=== PATIENT | female | born 1975 | race Caucasian/White ===

== ENCOUNTER 2017-10-27 11:42 | Emergency (ER) | payer OTHER ==
[~2017-10-27] VITALS: Ht 167.6 cm; Wt 103.0 kg
[~2017-10-27 11:42] MED LIST: ALBU90OI INH; AMOX875; AZIT250 PO; BENZ100A PO; Benadryl25 MG PO; CEPH500; CEPH500 PO; CODACE30 PO; CODGUAEL PO; DEPO SHOT; DIPH50 PO; Dicyclomine HCl10 MG PO; FLUSAL1005; GLIP5 PO; HYDACE5; HYDHOMSY; IPRAOI INH; LEVFLO500 PO; LEVOCETIRIZINE D5 MG PO; LISI5 PO; LORA10 PO; METF500 PO; MOM; Mucinex600 MG PO; NEOPOLHCSU AS; OMEP10ER; OMEP20ER; OMEP20ER PO; OXYACE5T PO; PANT20 PO; PANT40 PO; PRAV20 PO; PRED10 PO; Prednisone20 MG PO; TRADJENTA5 MG PO; [UNRECOGNIZED DRUG - REMARK]; [UNRECOGNIZED DRUG - REMARK]
== END 2017-10-27 13:46 | disposition home or self-care (01) ==
LOC: ER 11:42
DX: J02.9 Acute pharyngitis, unspecified (principal); E11.9 Type 2 diabetes mellitus without complications; Z88.0 Allergy status to penicillin; Z88.2 Allergy status to sulfonamides; Z88.8 Allergy status to other drugs, medicaments and biological substances; Z79.899 Other long term (current) drug therapy; Z79.84 Long term (current) use of oral hypoglycemic drugs; Z98.51 Tubal ligation status; Z87.891 Personal history of nicotine dependence
CPT/HCPCS: 87081; 87430; 99283

== ENCOUNTER → 2018-11-06 | Outpatient (CLI) | payer OTHER | END | disposition home or self-care (01) | LOC: LAB SHORT 14:14 → LAB EV 14:14 | DX: R07.0 Pain in throat (principal) | CPT/HCPCS: 87070 ==

== ENCOUNTER → 2019-02-19 | Outpatient (CLI) | payer OTHER | END | disposition home or self-care (01) | LOC: LAB SHORT 14:11 → LAB EV 14:11 | DX: K13.70 Unspecified lesions of oral mucosa (principal) | CPT/HCPCS: 87529 ==

== ENCOUNTER → 2019-09-30 | Outpatient (CLI) | payer OTHER | LOC: LAB SHORT 17:42 → LAB 17:42 → EDSTATUS 09-30 16:15 → LAB FUT 09-30 16:15 | DX: L29.3 Anogenital pruritus, unspecified (principal) | CPT/HCPCS: 87070; 87106; 87147; 87205 ==

== ENCOUNTER → 2020-07-16 | Outpatient (CLI) | payer OTHER ==
[2020-07-16 18:12] LABS: BASOPHILS ABSOLUTE AUTO 0.04 K/mm3 (0.00-0.23); BASOPHILS PERCENT AUTO 0 % (0-2); EOSINOPHILS ABSOLUTE AUTO 0.39 K/mm3 (0.00-0.68); EOSINOPHILS PERCENT AUTO 4 % (0-6); Hematocrit 40.1 % (33.0-51.0); Hemoglobin 13.6 g/dL (11.5-16.0); IMMATURE GRAN ABSOLUTE AUTO 0.06 K/mm3 (0.00-0.10); IMMATURE GRAN PERCENT AUTO 1 % (0-1); LYMPHOCYTES ABSOLUTE AUTO 2.99 K/mm3 (0.84-5.20); LYMPHOCYTES PERCENT AUTO 31 % (21-46); MONOCYTES ABSOLUTE AUTO 0.56 K/mm3 (0.16-1.47); MONOCYTES PERCENT AUTO 6 % (4-13); Mean Corpuscular HGB Conc 33.9 g/dL (31.5-36.5); Mean Corpuscular Volume 83 fL (80-100); Mean Platelet Volume 9.2 fL (9.1-12.4); NEUTROPHILS ABSOLUTE AUTO 5.49 K/mm3 (1.96-9.15); NEUTROPHILS PERCENT AUTO 58 % (41-73); Platelet Count 347 K/mm3 (150-400); RDW Coefficient Variation 12.6 % (11.7-14.2); RDW Standard Deviation 37.8 fL (35.1-46.3); Red Blood Cell Count 4.86 M/mm3 (3.80-5.20); White Blood Cell Count 9.53 K/mm3 (4.00-11.30)
[2020-07-16 18:22] LABS: Alanine Aminotransfer (ALT/SGP 30 U/L (12-78); Albumin, Blood 3.7 g/dL (3.4-5.0); Albumin/Globulin Ratio 0.9 (0.8-1.8); Alk Phos 73 U/L (40-126); Anion Gap 11 mmol/L (6-16); Aspartate Aminotrans (AST/SGOT 16 U/L (12-37); Bilirubin, Total 0.2 mg/dL (0.1-1.0); Blood Urea Nitrogen 14 mg/dL (8-24); Bun/Creatinine Ratio 16.7 (12.0-20.0); CO2, Blood 23 mmol/L (21-32); Calcium, Blood 9.5 mg/dL (8.5-10.1); Chloride, Blood 100 mmol/L (98-108); Creatinine, Blood 0.84 mg/dL (0.40-1.00); Globulin, Blood 3.9 g/dL (2.2-4.0); Glomerular Filtration Rate >60 (60-); Glucose, Blood 296 mg/dL (70-99); Potassium, Blood 4.2 mmol/L (3.5-5.5); Sodium, Blood 134 mmol/L (136-145); Total Protein, Blood 7.6 g/dL (6.4-8.2)
== END | disposition home or self-care (01) ==
LOC: LAB EV 18:03 → LAB SHORT 18:03
PROVIDERS: Physician Assistant
DX: R73.9 Hyperglycemia, unspecified (principal)
CPT/HCPCS: 80053; 85025

== ENCOUNTER → 2020-12-30 | Outpatient (CLI) | payer OTHER ==
[2020-12-30 17:40] LABS: Follicle Stimulating Hormone 9.7 mIU/ml; Luteinizing Hormone 4.8 mIU/ml
[2020-12-31 15:11] LABS: HPV 16 Negative (Negative); HPV 18 Negative (Negative); HPV OTHER HR TYPES Negative (Negative)
== END | disposition home or self-care (01) ==
LOC: LAB SHORT 12:00 → LAB 12:00
PROVIDERS: Family Medicine
DX: Z12.4 Encounter for screening for malignant neoplasm of cervix (principal); N95.1 Menopausal and female climacteric states
CPT/HCPCS: 83001; 83002; 87624; G0123

== ENCOUNTER → 2021-03-15 | Outpatient (CLI) | payer OTHER ==
[2021-03-15 15:26] LABS: BASOPHILS ABSOLUTE AUTO 0.04 K/mm3 (0.00-0.23); BASOPHILS PERCENT AUTO 1 % (0-2); EOSINOPHILS ABSOLUTE AUTO 0.34 K/mm3 (0.00-0.68); EOSINOPHILS PERCENT AUTO 5 % (0-6); Hematocrit 42.3 % (33.0-51.0); Hemoglobin 14.1 g/dL (11.5-16.0); IMMATURE GRAN ABSOLUTE AUTO 0.03 K/mm3 (0.00-0.10); IMMATURE GRAN PERCENT AUTO 0 % (0-1); LYMPHOCYTES ABSOLUTE AUTO 2.61 K/mm3 (0.84-5.20); LYMPHOCYTES PERCENT AUTO 36 % (21-46); MONOCYTES ABSOLUTE AUTO 0.42 K/mm3 (0.16-1.47); MONOCYTES PERCENT AUTO 6 % (4-13); Mean Corpuscular HGB 27.2 pg (26.0-34.0); Mean Corpuscular HGB Conc 33.3 g/dL (31.5-36.5); Mean Corpuscular Volume 82 fL (80-100); Mean Platelet Volume 9.3 fL (9.1-12.4); NEUTROPHILS ABSOLUTE AUTO 3.87 K/mm3 (1.96-9.15); NEUTROPHILS PERCENT AUTO 53 % (41-73); Platelet Count 352 K/mm3 (150-400); RDW Coefficient Variation 12.3 % (11.7-14.2); RDW Standard Deviation 36.5 fL (35.1-46.3); Red Blood Cell Count 5.18 M/mm3 (3.80-5.20); White Blood Cell Count 7.31 K/mm3 (4.00-11.30)
[2021-03-15 15:47] LABS: Alanine Aminotransfer (ALT/SGP 30 U/L (12-78); Albumin, Blood 4.1 g/dL (3.4-5.0); Albumin/Globulin Ratio 1.1 (0.8-1.8); Alk Phos 69 U/L (40-126); Anion Gap 11 mmol/L (6-16); Aspartate Aminotrans (AST/SGOT 13 U/L (12-37); Bilirubin, Total 0.2 mg/dL (0.1-1.0); Blood Urea Nitrogen 12 mg/dL (8-24); Bun/Creatinine Ratio 13.6 (12.0-20.0); CO2, Blood 25 mmol/L (21-32); Calcium, Blood 9.8 mg/dL (8.5-10.1); Chloride, Blood 100 mmol/L (98-108); Creatinine, Blood 0.88 mg/dL (0.40-1.00); Globulin, Blood 3.7 g/dL (2.2-4.0); Glomerular Filtration Rate >60 (60-); Glucose, Blood 309 mg/dL (70-99); Sodium, Blood 136 mmol/L (136-145); Thyroid Stimulating Hormone 1.927 uIU/mL (0.360-4.800); Total Protein, Blood 7.8 g/dL (6.4-8.2); Troponin I <0.017 ng/mL (0.000-0.040)
== END | disposition home or self-care (01) ==
LOC: PLD 15:18 → LAB SHORT 15:18
PROVIDERS: Physician Assistant Medical
DX: R07.9 Chest pain, unspecified (principal); R53.83 Other fatigue
CPT/HCPCS: 80053; 84443; 84484; 85025

== ENCOUNTER 2021-06-07 10:23 | Inpatient (IN) | payer OTHER ==
[~2021-06-07] VITALS: Ht 167.6 cm; Wt 84.3 kg
[~2021-06-07 10:23] MED LIST changes: -GLIP5 PO; -LISI5 PO; -METF500 PO; -PRAV20 PO; -TRADJENTA5 MG PO
[2021-06-07 10:42] LABS: Bicarbonate Venous 22.6 mmol/L (24.0-30.0); PCO2 Venous 39.7 mmHg (38-42); PO2 Venous 33.7 mmHg (38-42); pH Blood Venous 7.39 (7.34-7.37)
[2021-06-07 10:43] LABS: Base Excess Venous -1.3 mmol/L
[2021-06-07 11:02] LABS: BASOPHILS ABSOLUTE AUTO 0.01 K/mm3 (0.00-0.23); BASOPHILS PERCENT AUTO 0 % (0-2); EOSINOPHILS PERCENT AUTO 0 % (0-6); Hematocrit 44.2 % (33.0-51.0); Hemoglobin 14.2 g/dL (11.5-16.0); IMMATURE GRAN ABSOLUTE AUTO 0.14 K/mm3 (0.00-0.10); IMMATURE GRAN PERCENT AUTO 2 % (0-1); LYMPHOCYTES ABSOLUTE AUTO 0.69 K/mm3 (0.84-5.20); LYMPHOCYTES PERCENT AUTO 9 % (21-46); MONOCYTES ABSOLUTE AUTO 0.23 K/mm3 (0.16-1.47); MONOCYTES PERCENT AUTO 3 % (4-13); Mean Corpuscular HGB 26.9 pg (26.0-34.0); Mean Corpuscular HGB Conc 32.1 g/dL (31.5-36.5); Mean Corpuscular Volume 84 fL (80-100); Mean Platelet Volume 9.5 fL (9.1-12.4); NEUTROPHILS PERCENT AUTO 86 % (41-73); Platelet Count 408 K/mm3 (150-400); RDW Coefficient Variation 12.5 % (11.7-14.2); Red Blood Cell Count 5.27 M/mm3 (3.80-5.20); White Blood Cell Count 7.77 K/mm3 (4.00-11.30)
[2021-06-07 11:21] LABS: Alanine Aminotransfer (ALT/SGP 36 U/L (12-78); Albumin, Blood 2.5 g/dL (3.4-5.0); Albumin/Globulin Ratio 0.4 (0.8-1.8); Alk Phos 76 U/L (50-136); Anion Gap 9 mmol/L (6-16); Aspartate Aminotrans (AST/SGOT 54 U/L (12-37); Bilirubin, Total 0.5 mg/dL (0.1-1.0); Blood Urea Nitrogen 14 mg/dL (8-24); Bun/Creatinine Ratio 19.8 (12.0-20.0); CO2, Blood 24 mmol/L (21-32); Calcium, Blood 9.5 mg/dL (8.5-10.1); Chloride, Blood 98 mmol/L (98-108); Creatinine, Blood 0.71 mg/dL (0.40-1.00); Globulin, Blood 6.2 g/dL (2.2-4.0); Glomerular Filtration Rate >60 (60-); Glucose, Blood 293 mg/dL (70-99); Potassium, Blood 4.8 mmol/L (3.5-5.5); Sodium, Blood 131 mmol/L (136-145); Total Protein, Blood 8.7 g/dL (6.4-8.2); Troponin I <0.015 ng/mL (0.000-0.040)
[2021-06-07 11:22] LABS: C-REACTIVE PROTEIN, EXT RANGE >19.000 mg/dL (0.000-0.300)
[2021-06-07] MEDS ORDERED: FLUTICASONE-SA1 EAC8 INH (12:34)
[2021-06-07] MEDS ORDERED: Bentyl20 MG PO (12:37)
[2021-06-07] MEDS ORDERED: ESOMEPRAZOLE MA40 MG PO (12:38)
[2021-06-07] MEDS ORDERED: FENOFIBRATE145 MG PO (12:38)
[2021-06-07] MEDS ORDERED: GLIP10 PO (12:38)
[2021-06-07] MEDS ORDERED: PRAV20 PO (12:39)
[2021-06-07] MEDS ORDERED: LISI5 PO (12:39)
[2021-06-07] MEDS ORDERED: METF500 PO (12:39)
[2021-06-07] MEDS ORDERED: TRADJENTA5 MG PO (12:40)
--- NOTE | 2021-06-07 15:49 | NUR ---
PT ADMITTED TO ROOM 224, COVID POSITIVE. ON AIRVO WITH 55L @ 88%FIO2. DENIES SOB AT REST. O2 SAT IS 94% CURRENTLY. ORIENTED TO ROOM AND CALL LIGHT. BED ALARM IN USE.
--- NOTE | 2021-06-07 16:46 | NUR ---
NOTIFIED PROVIDER OF CBG OF 356. ORDER FOR LANTUS AT BEDTIME GIVEN. WILL GIVE 5UNITS HUMALOG PER SLIDING SCALE. CONFIRMED WITH PROVIDER.
--- NOTE | 2021-06-07 17:37 | NUR ---
SHIFT SUMMARY PT IS A/O X4, HX DEVELOPMENTAL DELAY, SLOW TO RESPOND. ADMITTED THIS SHIFT WITH COVID. HAVING SOB WITH EXERTION BUT DENIES ANY AT REST. ON AIRVO 55LPM W/ FIO2 @88%. PT POSITIONED ON L SIDE WHICH IS HELPING MAINTAIN 02 SAT - HAS BEEN 90-95% FOR O2 SAT. PT IS IND AT BASELINE; USING BSC AND 1X ASSIST FOR LINES/CORDS. USING CALL LIGHT APPR.
--- NOTE | 2021-06-07 22:53 | NUR ---
CALLED DR. ABDI FOR PATIENT'S BLOOD SUGAR OF >400 @ 20:[address] ABDI ORDERED TO HAVE BLOOD SUGAR CHECKED AFTER TWO HOURS AND TO CHANGE FROM LOW TO MEDIUM SLIDING SCALE. THEN TO GIVE THE PATIENT THE HUMALOG DOSAGE FOR THE MEDIUM SLIDING SCALE. PATIENT'S BLOOD SUGAR WAS JUST CHECKED AND WAS 407. SHE WAS THEN GIVEN ACCORDING TO SLIDING SCALE HS 4 UNITS HUMALOG. PATIENT DENIES HAVING HYPERGLYCEMIC SYMPTOMS AND HAS BEEN LAYING ON HER SIDE IN BED. CALL LIGHT WITHIN REACH. WILL CONTINUE TO MONITOR FOR HYPERGLYCEMIC SYMPTOMS AND BLOOD SUGAR.
--- NOTE | 2021-06-08 02:47 | NUR ---
SHIFT SUMMARY: COVID 19 PATIENT IS ALERT AND ORIENTED X4 WITH A DEVELOPMENTAL DELAY HISTORY. SHE IS SLOW TO RESPOND TO QUESTIONS. SHE HAS SOB WITH EXERTION TO [facility] BUT DENIES ANY CHEST PAIN DURING AMBULATION. SHE IS ON AIRVO WITH 55LPM WITH 88% FiO2 AT 90% OXYGEN SATS. PATIENT IS ON HER STOMACH SO FAR THIS SHIFT AND HAS BEEN TOLERATING IT WELL. SOMETIMES DURING THE NIGHT SHE WILL TURN TO HER SIDE PRN. SHE IS STILL MAINTAINING OXYGEN SATS WHEN REPOSTIONING. SHE IS VOIDING AND ARIK PO INTAKE WITH MULTIPLE BREAKS. BLOOD GLUCOSE WAS HIGH THIS SHIFT (SEE OTHER NOTES) BUT WAS GIVEN INSULIN. PATIENT USES CALL LIGHT APPROPRIATELY. CALL LIGHT WITHIN REACH.
[2021-06-08 04:25] LABS: BASOPHILS ABSOLUTE AUTO 0.02 K/mm3 (0.00-0.23); BASOPHILS PERCENT AUTO 0 % (0-2); EOSINOPHILS PERCENT AUTO 0 % (0-6); Hematocrit 39.1 % (33.0-51.0); Hemoglobin 12.9 g/dL (11.5-16.0); Mean Corpuscular Volume 82 fL (80-100); Mean Platelet Volume 9.6 fL (9.1-12.4); Platelet Count 307 K/mm3 (150-400); RDW Coefficient Variation 12.3 % (11.7-14.2); RDW Standard Deviation 37.3 fL (35.1-46.3); Red Blood Cell Count 4.77 M/mm3 (3.80-5.20); White Blood Cell Count 6.67 K/mm3 (4.00-11.30)
[2021-06-08 04:31] LABS: IMMATURE GRAN ABSOLUTE AUTO 0.27 K/mm3 (0.00-0.10); IMMATURE GRAN PERCENT AUTO 4 % (0-1); LYMPHOCYTES ABSOLUTE AUTO 0.62 K/mm3 (0.84-5.20); LYMPHOCYTES PERCENT AUTO 9 % (21-46); MONOCYTES ABSOLUTE AUTO 0.14 K/mm3 (0.16-1.47); MONOCYTES PERCENT AUTO 2 % (4-13); NEUTROPHILS ABSOLUTE AUTO 5.62 K/mm3 (1.96-9.15); NEUTROPHILS PERCENT AUTO 84 % (41-73)
[2021-06-08 04:59] LABS: Alanine Aminotransfer (ALT/SGP 41 U/L (12-78); Albumin, Blood 2.2 g/dL (3.4-5.0); Albumin/Globulin Ratio 0.4 (0.8-1.8); Alk Phos 72 U/L (50-136); Anion Gap 16 mmol/L (6-16); Aspartate Aminotrans (AST/SGOT 51 U/L (12-37); Bilirubin, Total 0.5 mg/dL (0.1-1.0); Blood Urea Nitrogen 27 mg/dL (8-24); Bun/Creatinine Ratio 39.9 (12.0-20.0); CO2, Blood 16 mmol/L (21-32); Chloride, Blood 99 mmol/L (98-108); Creatinine, Blood 0.68 mg/dL (0.40-1.00); Globulin, Blood 5.3 g/dL (2.2-4.0); Glomerular Filtration Rate >60 (60-); Glucose, Blood 391 mg/dL (70-99); Potassium, Blood 4.9 mmol/L (3.5-5.5); Sodium, Blood 131 mmol/L (136-145); Total Protein, Blood 7.5 g/dL (6.4-8.2)
[2021-06-08 06:22] LABS: BAND PERCENT MAN 1 % (0-8); BASOPHILS PERCENT MAN 0 % (0-2); EOSINOPHILS PERCENT MAN 0 % (0-6); LYMPHOCYTES % ATYPICAL MANUAL 1 % (0-0); LYMPHOCYTES ABSOLUTE MAN 0.73 K/mm3 (0.84-5.20); LYMPHOCYTES PERCENT MAN 10 % (21-46); MONOCYTES ABSOLUTE MAN 0.13 K/mm3 (0.16-1.47); MONOCYTES PERCENT MAN 2 % (4-13); MYELOCYTE ABSOLUTE MAN 0.13 K/mm3 (0.00-0.00); MYELOCYTE PERCENT MAN 2 % (0-0); NEUTROPHILS ABSOLUTE MAN 5.66 K/mm3 (1.96-9.15); SEG NEUTROPHILS PERCENT MAN 84 % (41-73); TOTAL CELLS COUNTED 100
--- NOTE | 2021-06-08 07:53 | NUR ---
pt sleeping on her left side biox 90's wakes to verbal stimuli offered ice water pt declined pt able to roll up fully so i can listen to her lungs then went back to her side awaiting her breakfast
--- NOTE | 2021-06-08 13:26 | NUR ---
pt more alert eating her meal rt by to see pt inc high flow to 60 iiters at 90%
--- NOTE | 2021-06-08 17:49 | NUR ---
updated pt's sister on her care she would like a phone call from or case mgmt daily if poss additional nov given per inc bs talked with dr mcgill re cont inc int the 400's
--- NOTE | 2021-06-08 21:48 | NUR ---
DR ABDI WAS NOTIFIED THE PATIENT'S BLOOD SUGAR WAS 421. SHE WAS SCHEDUALED TO GET HUMALOG 6 UNITS AND LANTUS 20 UNITS. RN WAS INSTRUCTED TO GIVE THE SCHEDUAL INSULINS AND RECHECK IN 2 HOURS.
--- NOTE | 2021-06-09 02:24 | NUR ---
DR RUIZ WAS NOTIFIED OF THE BLOOD SUGAR RECHECK WHICH WAS 393. DR RUIZ WANTED TO KNOW HOW MUCH LANTUS THE PATIENT WAS ON AT HOME AND IT LOOKED LIKE THE PATIENT WAS GETTING 10 UNITS OF LANTUS. NO NEW ORDERS WILL CONTINUE TO MONITOR. NO INSTRUCTIONS TO RECHECK.
[2021-06-09 04:37] LABS: Hematocrit 42.6 % (33.0-51.0); Hemoglobin 13.8 g/dL (11.5-16.0); Mean Corpuscular HGB 26.4 pg (26.0-34.0); Mean Corpuscular HGB Conc 32.4 g/dL (31.5-36.5); Mean Corpuscular Volume 82 fL (80-100); Mean Platelet Volume 9.8 fL (9.1-12.4); Platelet Count 212 K/mm3 (150-400); RDW Coefficient Variation 12.4 % (11.7-14.2); RDW Standard Deviation 37.3 fL (35.1-46.3); Red Blood Cell Count 5.22 M/mm3 (3.80-5.20); White Blood Cell Count 11.19 K/mm3 (4.00-11.30)
[2021-06-09 04:58] LABS: Alanine Aminotransfer (ALT/SGP 33 U/L (12-78); Albumin, Blood 2.3 g/dL (3.4-5.0); Albumin/Globulin Ratio 0.5 (0.8-1.8); Alk Phos 80 U/L (50-136); Anion Gap 10 mmol/L (6-16); Aspartate Aminotrans (AST/SGOT 24 U/L (12-37); Bilirubin, Total 0.6 mg/dL (0.1-1.0); Blood Urea Nitrogen 33 mg/dL (8-24); Bun/Creatinine Ratio 48.2 (12.0-20.0); CO2, Blood 22 mmol/L (21-32); Calcium, Blood 9.9 mg/dL (8.5-10.1); Chloride, Blood 100 mmol/L (98-108); Creatinine, Blood 0.68 mg/dL (0.40-1.00); Globulin, Blood 4.9 g/dL (2.2-4.0); Glomerular Filtration Rate >60 (60-); Glucose, Blood 416 mg/dL (70-99); Potassium, Blood 5.1 mmol/L (3.5-5.5); Sodium, Blood 132 mmol/L (136-145); Total Protein, Blood 7.2 g/dL (6.4-8.2)
--- NOTE | 2021-06-09 05:24 | NUR ---
SHIFT SUMMARY THE PATIENT IS RESTING COMFORTABLY IN BED. VITAL WERE STABLE DURING THE SHIFT. BLOOD SUGAR WAS UNSTABLE SEE NOTES FOR COMMUNICATION WITH PATIENT TOLERATED THE AIRVO 60L AND 92% FIO2 WHILE LAYING ON HER LEFT SIDE. TRIED TO REPOSITION PATIENT BUT STATED SHE PREFERED THE LEFT SIDE. CALL LIGHT IN REACH. BED IN LOW POSITION. WILL CONTINUE TO MONITOR.
[2021-06-09 06:06] LABS: BASOPHILS PERCENT MAN 0 % (0-2); EOSINOPHILS PERCENT MAN 0 % (0-6); LYMPHOCYTES ABSOLUTE MAN 0.33 K/mm3 (0.84-5.20); LYMPHOCYTES PERCENT MAN 3 % (21-46); MONOCYTES ABSOLUTE MAN 0.33 K/mm3 (0.16-1.47); MONOCYTES PERCENT MAN 3 % (4-13); MYELOCYTE ABSOLUTE MAN 0.11 K/mm3 (0.00-0.00); MYELOCYTE PERCENT MAN 1 % (0-0); SEG NEUTROPHILS PERCENT MAN 93 % (41-73); TOTAL CELLS COUNTED 100
--- NOTE | 2021-06-09 09:27 | NUR ---
WITH AM VS PT RR WAS ELEVATED. SHE WAS MAINTAINING LOW 90% WHILE AT REST. PT WAS ASSISTED TO SIT UP FOR AM MEDICATIONS AND DESATURATED TO 85% AND WAS UNABLE TO RECOVER ON AIRVO SUPPORT ONLY. PT WAS REPOSITIONED FOR EASE OF BREATHING WITH NO IMPROVEMENT. NON-REBREATHER PLACED AT 15L, WHICH STARTED TO IMPROVE O2 AND PT RECOVERED TO 88%. RT WAS NOTIFIED, FIO2 WAS INCRESED TO 93% ON AIRVO BY CASEY CHOUDHARY. PT WAS ABLE TO RECOVER TO 90-92%. PT WAS ABLE TO TOLERATE HER PILLS AND SITTING UP FOR BREAKFAST AFTER MEDICATIONS WERE GIVEN.
--- NOTE | 2021-06-09 10:30 | NUR ---
DR. ZHAO ROUNDED ON PT. HE WAS NOTIFIED OF INCREASED, SHALLOW RR, ELEVATED BLOOD GLUCOSE AND DESATURATION TO 85% WHILE SITTING UP AND ATTEMPTINT TO TAKE MORNING MEDICATION. PT DID IMPROVE WITH INCREASED FIO2 OF 93%. DR. ZHAO SUGGESTED PRONE POSITIONING IF PT IS UNABLE TO RECOVER/MAINTAIN OXYGEN SATURATION.
--- NOTE | 2021-06-09 12:12 | NUR ---
PT HAS INCREASED RR OF 52. CALL PLACED TO DR. ZHAO, AWAITING RETURN CALL.
--- NOTE | 2021-06-09 12:41 | NUR ---
NOON ASSESSMENT UPON ASSESSMENT UPPER LOBES ARE COARSE, CRACKLES IN THE BASES. RR INCREASED AT 52. PT REPORTS FEELING MORE SHORT OF BREATH. SHE IS ABLE TO SPEAK IN SHORT SENTANCES AND IS ABLE TO EAT. PT MAINTAINS O2 SATURATION BETWEEN 88 AND 90% WHILE EATING, WHEN NOT EATING SHE RECOVERS TO 90-91% ON AIRVO FIO2 93%. PT COMPLAINS OF PAIN TO HER RIGHT SECOND TOE, SCAB PRESENT, NO REDNESS OR SWELLING. NO OTHER CHANGES SINCE AM ASSESSMENT. DR. ZHAO NOTIFIED OF INCREASED RR AND ELEVATED BLOOD GLUCOSE. WILL CONTINUE TO MONITOR.
--- NOTE | 2021-06-09 15:00 | NUR ---
PATIENT HAD TAKEN OFF CPAP TWICE AND DESATURATED TO 80% RN AWARE AND ASSISTING AT BEDSIDE.
--- NOTE | 2021-06-09 18:00 | NUR ---
EVENING ASSESSMENT PT IS ALERT AND ORIENTED BUT DOES HAVE DECREASED UNDERSTANDING OF HER SITUATION. SHE FORGETS TO LEAVE HER MASK ON AND IS OCCASIONALLY ABLE TO REMOVE IT DESPITE RESTRAINTS. PT HAS BEEN EDUCATED TO LEAVE THE MASK IN PLACE AND IMPORTANCE OF CPAP, SHE VERBALIZED UNDERSTANDING. LUNG SOUNDS ARE DIMINISHED T/O THIS EVENING. ASSESSMENT OTHERWISE UNCHANGED FROM PREVIOUS ASSESSMENT.
--- NOTE | 2021-06-09 19:50 | NUR ---
[facility] REFERRAL - ADMIT: 06/07/21 DISCHARGE: TBD DX: COVID PNEUMONIA CC: Wood [place] RESIDENCE: [place] [id number] NEXT OF KIN/CONTACTS: WHITNEY VALENTINE, FRIEND [phone] AND ELSY LYNN - [phone] UPDATE 06/09/21: DAY 2 OF HOSPITALIZATION. ON HIGH FLOW O2. SETTINGS: CPAP 60 LPM. FIO2 90. SPO2 90%. RECEIVED CALL FROM NURSE ON FLOOR CARING FOR PATIENT REGARDING PATIENT'S CONTACTS. CONCERN THAT SHE DOES NOT HAVE SUPPORT THAT CAN ASSIST IN DECISION MAKING. TALKED WITH DR. ZHAO WHO HAS BEEN CONTACT PATIENT'S SISTER. CONCERN THAT SISTER MIGHT NOT BE ABLE TO MAKE DECISIONS FOR HER TO HER OWN LIMITATIONS. FRIENDS LISTED ON CONTACTS. PATIENT'S OTHER SISTER IS IN INTERMEDIATE PER NURSING STAFF. I HAVE COMBED THROUGH HER [employer] EMR CHART THIS EVENING AND I HAVE NOT HAD ANY LUCK IN FINDING A CONTACT. SHE HAS NO CONTACTS LISTED ON HER [facility] HIPAA FORMS. PATIENT DOES HAVE [facility] AND [facility]. I WOULD RECOMMEND CONTACTING [facility] OR [facility] TOMORROW TO DETERMINE IF PT. HAS ADDITIONAL SUPPORT THAT THEY MIGHT BE AWARE OF. IT WOULD BE HELPFUL TO INVOLVE [facility] THEY HAVE MORE RESOURCES AVAILABLE TO PATIENT. I AM NOT SHIFT TOMORROW. CAESAR MONDRAGON WILL BE ASSISTING WITH PATIENT'S CARE. UPDATE 06/08/21: DAY 1 OF HOSPITALIZATION. CURRENTLY ON AIRVO AND ADMITTED TO PCU. PT. IS NOT ANTICIPATED TO D/C WITHIN THE NEXT 24-48 HOURS.
[2021-06-09 20:36] LABS: Source, Urine Catheter
[2021-06-09 20:37] LABS: Bilirubin, Urine Neg (Neg); Blood, Urine Neg (Neg); Glucose Qualitative, Urine 3+ (Neg); Ketones, Urine 2+ (Neg); Leukocyte Esterase, Urine Neg (Neg); Nitrite, Urine Neg (Neg); Protein, Urine 2+ (Neg); Specific Gravity, Urine 1.015 (1.003-1.022); Urobilinogen, Urine NORM (Normal)
[2021-06-09 20:39] LABS: Appearance, Urine Clear (Clear); Color, Urine Yellow (P-Yellow)
[2021-06-09 20:51] LABS: Bacteria Mod /hpf; Red Blood Cells, Urine Rare /hpf (0-2); Squamous Epithelial Cells Few /hpf (Few); White Blood Cells, Urine 0-2 /hpf (0-5)
[2021-06-10 04:16] LABS: BASOPHILS ABSOLUTE AUTO 0.05 K/mm3 (0.00-0.23); BASOPHILS PERCENT AUTO 0 % (0-2); EOSINOPHILS PERCENT AUTO 0 % (0-6); Hematocrit 42.6 % (33.0-51.0); Hemoglobin 14.3 g/dL (11.5-16.0); IMMATURE GRAN PERCENT AUTO 3 % (0-1); LYMPHOCYTES ABSOLUTE AUTO 0.73 K/mm3 (0.84-5.20); LYMPHOCYTES PERCENT AUTO 6 % (21-46); MONOCYTES ABSOLUTE AUTO 0.53 K/mm3 (0.16-1.47); MONOCYTES PERCENT AUTO 4 % (4-13); Mean Corpuscular HGB 27.1 pg (26.0-34.0); Mean Corpuscular HGB Conc 33.6 g/dL (31.5-36.5); Mean Corpuscular Volume 81 fL (80-100); Mean Platelet Volume 9.8 fL (9.1-12.4); NEUTROPHILS ABSOLUTE AUTO 11.55 K/mm3 (1.96-9.15); NEUTROPHILS PERCENT AUTO 87 % (41-73); Platelet Count 267 K/mm3 (150-400); RDW Coefficient Variation 12.2 % (11.7-14.2); RDW Standard Deviation 35.8 fL (35.1-46.3); Red Blood Cell Count 5.28 M/mm3 (3.80-5.20); White Blood Cell Count 13.26 K/mm3 (4.00-11.30)
[2021-06-10 04:45] LABS: Alanine Aminotransfer (ALT/SGP 26 U/L (12-78); Albumin, Blood 2.4 g/dL (3.4-5.0); Albumin/Globulin Ratio 0.5 (0.8-1.8); Alk Phos 81 U/L (50-136); Anion Gap 8 mmol/L (6-16); Aspartate Aminotrans (AST/SGOT 24 U/L (12-37); Bilirubin, Total 0.9 mg/dL (0.1-1.0); Blood Urea Nitrogen 27 mg/dL (8-24); Bun/Creatinine Ratio 47.9 (12.0-20.0); CO2, Blood 23 mmol/L (21-32); Chloride, Blood 105 mmol/L (98-108); Creatinine, Blood 0.56 mg/dL (0.40-1.00); Globulin, Blood 4.8 g/dL (2.2-4.0); Glomerular Filtration Rate >60 (60-); Glucose, Blood 242 mg/dL (70-99); Potassium, Blood 4.1 mmol/L (3.5-5.5); Sodium, Blood 136 mmol/L (136-145); Total Protein, Blood 7.2 g/dL (6.4-8.2)
--- NOTE | 2021-06-10 07:24 | NUR ---
SHIFT SUMMARY PT. ALERT AND CONFUSED AT BEDSIDE. ON SANDRA. UPPER EXTR. RESTRAINTS IN PLACE. PT. IS ABLE TO REMOVE CPAP MACHINE. WAS GIVEN ATIVAN AT MIDNOC WHEN BECAME EXTREMELY AGITATED. PT. CALMED DOWN WHEN RN STAYED IN ROOM AT BEDSIDE; DID FALL ASLEEP. WHEN PT. WOKE UP SHE WAS EXTREMELY ANXIOUS, SCREAMING, AGITATED, TAKING HER CPAP MASK OFF. CALLED DR. RUIZ AND GAVE ME A VERBAL ORDER FOR HALDOL I.V. MEDICATION DID NOT WORK AND AROUND 30-40 MINUTES AND HR AND RESPIRATIONS ELEVATING CALLED DR. RUIZ AGAIN, AND AWARE OF ELEVATED HR, IRRITATION, RESPIRATIONS, AND PT. SCREAMING. GOT VERBAL ORDER FOR A STRONGER ATIVAN ORDER. AFTER ABOUT 20 MINUTES PT. CALMED DOWN AND RELAXED FELL ASLEEP. PT. CALM AND COMFORTABLE AT BEDSIDE. CONT. TO BE ON UPPER SANDRA. UPPER EXT. SOFT RESTRAINTS. MAINTAINING O2 ABOVE 91%. BARRERA CATH. IN PLACE. GAVE REPORT TO DAY SHIFT NURSE AND AWARE OF WHAT IS GOING ON.
--- NOTE | 2021-06-10 08:03 | NUR ---
UPON ASSESSMENT AT SHIFT CHANGE PT ALERT, CONFUSED, COMBATIVE, PULLING BIPAP OFF DESPITE RESTRAINTS. PT TREATED WITH ATIVAN WITHOUT EFFECT, DR BAL CALLED AND NEW ORDER OBTAINED FOR PRECEDEX DRIP. PRECEDEX IS INFUSING AT RATE OF 0.2MCG/KG/HR. PT ON CONTINUOUS CARDIAC MONITORING AND CERTIFIED SOLID WASTE FACILITY OPERATOR IS AWARE OF PRECEDEX DRIP. PT WITH GRUNTING RESPIRATIONS, AGITATED. WILL CONTINUE TO MONITOR CLOSELY FOR CHANGES
--- NOTE | 2021-06-10 13:05 | NUR ---
06/10/21- Spoke with Dr. Tomlinson and provided her with the name and numbers for friends listed in chart as emergency contacts. No discharge plan at this time and Dr. Tomlinson will try to reach out to individuals listed in chart to discuss care options. -marc
--- NOTE | 2021-06-10 14:45 | NUR ---
REPORT TO ERIS MÁRQUEZ WHO WILL ASSUME PT CARE
--- NOTE | 2021-06-10 15:55 | NUR ---
DR. RICHARDSON ASKED TO COME AND ASSESS PATIENT CONCERNED ABOUT PATIENT'S RR MAINTAINING IN THE 60S. DR. BAL ALSO CONTACTED. ETHICS CONSULT ORDERED. DR. BAL STATED THAT THE CLOSEST PERSON TO PATIENT THAT SHE COULD FIND IS THE FINANCIAL FIDUCIARY'S NAME IS WHITNEY AND HER CONTACT NUMBER IS [phone]. ORDERS OBTAINED FROM. DR. BAL AND DR. RICHARDSON.
--- NOTE | 2021-06-10 16:20 | NUR ---
ASSUMPTION OF CARE PATIENT ARRIVED TO UNIT AROUND 1500. PATIENT AFEBRILE. PATIENT SEDATED AT THIS TIME ON PRECEDEX AND PRN ATIVAN. PATIENT VERY ANXIOUS AND AGITATED WHEN NOT SEDATED AND THUS SATS DECREASE FURTHER. PRECEDEX AT 1.2 MCG/ KG/ HOUR. PATIENT ON BIPAP /8, RATE OF 14, AND 85% FIO2. RR 50S TO 60S. PATIENT IN SR, HR IN THE 70S. SBP IN THE 120S. PATIENT NPO. BARRERA DRAINING ORANGE COLORED URINE. BED LOW, CALL LIGHT IN REACH. WILL CONTINUE TO MONITOR PATIENT FREQUENTLY THROUGHOUT SHIFT.
--- NOTE | 2021-06-10 19:27 | NUR ---
SHIFT SUMMARY PATIENT HAS REMAINED SLEEPING SOUNDLY SINCE PRECEDEX INCREASED, PRN ATIVAN GIVEN AND PRN FENTANYL GIVEN. RR CAME DOWN FROM 60S TO 40S WITH PRN FENTANYL. PATIENT REMAINS ON SAME BIPAP SETTINGS. PATIENT HR REMAINS IN 70S. SBP 120S TO 130S. NO BM THIS SHIFT. PATIENT REMAINED NPO. DR. RICHARDSON DOES NOT WANT IV NUTRITION OR MAINTENANCE FLUIDS AT THIS TIME. PATIENT APPEARS WITHOUT DISTRESS OR PAIN AT THIS TIME. REPORT HAS BEEN GIVEN TO ASSUMING EXTRUSION PROCESS OPERATOR NURSE.
--- NOTE | 2021-06-10 20:45 | NUR ---
DR RICHARDSON CONTACTED DUE TO LOW SPO2. PT WAS BOOSTED IN BED AND SUBSEQUENTLY DESATURATED TO THE 70'S DESPITE INCREASING FIO2 TO 100%. PT WAS ALSO MEDICATED WITH FENTANYL AND ATIVAN FOR TACHYPNEA AND AGITATION FOR BIPAP COMPLIANCE, BUT DID NOT REACH SPO2 OF 86% FOR ALMOST 30MIN. DR RICHARDSON WILL BE IN TO SEE THE PATIENT.
--- NOTE | 2021-06-10 21:30 | NUR ---
DECISION IS MADE TO MOVE PT TO ICU 7 AND INTUBATE. SHE DOES NOT TOLERATE ANY CARE AND DESATURATES QUICKLY.
--- NOTE | 2021-06-10 23:08 | NUR ---
PT WAS TRANSFERRED TO ICU 7 FOR INTUBATION. PT WAS INDUCED WITH ETOMIDATE, ROCURONIUM, AND FENTANYL AND 7.5 ETT IS PLACED AT 23CM AT TEETH. OG PLACED WITH RETURN OF GASTRIC CONTENTS AND AIR AUSCUTATED OVER EPIGASTRIUM. ETT AND OG ARE CONFIRMED BY XRAY AND ETT IS MOVED TO 25CM AT TEETH. PROPOFOL GTT STARTED FOR SEDATION AND LEVOPHED FOR BP SUPPORT. PRECEDEX IS OFF.
[2021-06-11 03:53] LABS: BASOPHILS ABSOLUTE AUTO 0.04 K/mm3 (0.00-0.23); BASOPHILS PERCENT AUTO 1 % (0-2); EOSINOPHILS PERCENT AUTO 0 % (0-6); Hematocrit 45.5 % (33.0-51.0); Hemoglobin 14.5 g/dL (11.5-16.0); IMMATURE GRAN ABSOLUTE AUTO 0.34 K/mm3 (0.00-0.10); IMMATURE GRAN PERCENT AUTO 4 % (0-1); LYMPHOCYTES ABSOLUTE AUTO 0.38 K/mm3 (0.84-5.20); LYMPHOCYTES PERCENT AUTO 4 % (21-46); MONOCYTES ABSOLUTE AUTO 0.28 K/mm3 (0.16-1.47); MONOCYTES PERCENT AUTO 3 % (4-13); Mean Corpuscular HGB 26.6 pg (26.0-34.0); Mean Corpuscular HGB Conc 31.9 g/dL (31.5-36.5); Mean Corpuscular Volume 84 fL (80-100); Mean Platelet Volume 9.8 fL (9.1-12.4); NEUTROPHILS ABSOLUTE AUTO 7.76 K/mm3 (1.96-9.15); NEUTROPHILS PERCENT AUTO 88 % (41-73); Platelet Count 219 K/mm3 (150-400); RDW Coefficient Variation 12.4 % (11.7-14.2); RDW Standard Deviation 37.2 fL (35.1-46.3); Red Blood Cell Count 5.45 M/mm3 (3.80-5.20)
[2021-06-11 04:10] LABS: Alanine Aminotransfer (ALT/SGP 22 U/L (12-78); Albumin, Blood 2.3 g/dL (3.4-5.0); Albumin/Globulin Ratio 0.5 (0.8-1.8); Alk Phos 83 U/L (50-136); Anion Gap 7 mmol/L (6-16); Aspartate Aminotrans (AST/SGOT 21 U/L (12-37); Bilirubin, Total 0.4 mg/dL (0.1-1.0); Blood Urea Nitrogen 28 mg/dL (8-24); Bun/Creatinine Ratio 42.8 (12.0-20.0); CO2, Blood 23 mmol/L (21-32); Calcium, Blood 8.5 mg/dL (8.5-10.1); Chloride, Blood 109 mmol/L (98-108); Creatinine, Blood 0.65 mg/dL (0.40-1.00); Globulin, Blood 4.8 g/dL (2.2-4.0); Glomerular Filtration Rate >60 (60-); Glucose, Blood 351 mg/dL (70-99); Potassium, Blood 5.1 mmol/L (3.5-5.5); Sodium, Blood 139 mmol/L (136-145); Total Protein, Blood 7.1 g/dL (6.4-8.2)
--- NOTE | 2021-06-11 05:59 | NUR ---
PT CRASHES EARLY IN THE SHIFT FOLLOWING A SUBTLE REPOSITION WHILE ON BIPAP 09/07, FIO2 85%. SHE WAS MILDLY AGITATED, AND TACHYPNEIC WITH RR IN THE 50'S AND 60'S. MEDICATED WITH ATIVAN AND FENTANYL AND FIO2 INCREASED TO 100%. AFTER ALMOST 30 MIN PT'S SPO2 REACHES 86% AND THEN SLOWLY RISES TO 90%. DR RICHARDSON IS CONTACTED AND THE DECISION IS MADE TO MOVE PT TO ICU AND INTUBATE. VENT SETTINGS ARE CURRENTLY AC 26/360/16/60% WITH SPO2 IN MID 90'S. PT IS ADEQUATELY SEDATED WITH PROPOFOL AT 40MCG/KG/MIN AND PRN DOSES OF ATIVAN AND FENTANYL WITH RASS -3 TO -4. OG HAS SCANT GREEN OUTPUT ON LIS. BARRERA DRAINING MARÍA URINE WITH 400ML OUTPUT. WILL CONTINUE TO MONITOR AND REPORT TO ONCOMING SHIFT.
--- NOTE | 2021-06-11 09:05 | NUR ---
ASSUMED CARE REPORT FROM XENIA MÁRQUEZ AT 0700. PT INTUBATED AND SEDATED. VENT SETTINGS AC 26/360/16/60%. LUNGS DIM THROUGHOUT. SCANT SECRETIONS THROUGH ETT. PT FLUSHED. RESPONSIVE TO PAINFUL STIMULI. PROPOFOL GTT FOR SEDATION. SANDHYA. ABD ROUND, SOFT, NON TENDER. BT HYPOACTIVE. OGT TO LIS. BARRERA PATENT, DRAINING CLOUDY YELLOW URINE c SEDIMENT TO GRAVITY. LEVO GTT FOR MAP> 65. ST MONITOR, RATE 100'S. WILL CONTINUE TO MONITOR.
--- NOTE | 2021-06-11 09:43 | NUR ---
Late entry for consultation service provided on 06/10/21. It was reported by the MD, Bushra Berger, that the principal is currently listed as full code and will likely require mechanical intubation if she continues to desaturate. Bonny is classified in the EHR as disabled, she has been diagnosed to be COVID-19 positive, and she is at great risk of suffering acute hypoxic respiratory decompensation. I recommended that we initially rely on her proxy by defualt for decisional guidance on the goals of care. If Bonny does not tolerate invasive airway support well, worsens despite our best efforts, or eventually shows no signs of clinical improvement or treatment becomes non-beneficial or disproportionate, then we can recovene with her MPOA and have a de-escelation of care discussion via informed dissent. If such a conversation is needed please contact me for support. Thank you for this consult. Ray Rios ThD
--- NOTE | 2021-06-11 10:33 | NUR ---
ASSUMED CARE REPORT FROM GEOVANI MÁRQUEZ AT 0700. PT INTUBATED, SEDATED AND PARALYZED. AT SHIFT CHANGE, O2 SATS TRENDING DOWN. DR ARGUETA NOTIFIED. SUPINED PT AT 0800. ADVANCED ETT TO 25 AT LIP. O2 SATS REMAINED LOW, ADJUSTED VENT SETTINGS TO AV/PC 30//1.24/18/100%. LOW VOLUME ALARMS, LOW 200'S DESPITE RT ADJUSTMENTS. UPON SUPINE POSITION, LUNGS c CRACKLES IN RIGHT LOBE. CONCERN FOR PNEUMO, REPEAT CHEST XRAY COMPLETED. NO PNEUMO NOTED. O2 SATS LOW 80'S. AND DAUGHTER CALLED TO BEDSIDE. UPDATED BY PALLATIVE CARE AND DR DALTON. NO CHANGE TO CODE STATUS. ROCURONIUM GTT, TO4 01/02, PT COMPLIANT c VENT. PROPOFOL AND FENTANYL GTT FOR PAIN AND SEDATION. BIS 40-50'S. SR ON MONITOR, RATE TRENDING UP SINCE SHIFT CHANGE, 80-100'S. BP STABLE. TUBE FEEDS CONTINUE AT GOAL. PICC TO RUE, POWERGLIDE TO LUE, DRESSINGS C/D/I. BARRERA PATENT, DRAINING MARÍA URINE TO GRAVITY. WILL CONTINUE TO MONITOR CLOSELY.
--- NOTE | 2021-06-11 17:29 | NUR ---
SHIFT SUMMARY/SQ EMPHYSEMA PT REMAINS INTUBATED AND SEDATED. VENT SETTINGS AC/VC 26/350/16/50%. LUNGS CLEAR. UPON AFTERNOON ASSESSMENT, SQ EMPHYSMA NOTED TO ANTERIOR AND POSTERIOR NECK, WORSE ON RIGHT SIDE, AND RIGHT BREAST. XRAY COMPLETED. DR DALTON NOTIFIED. REASSESSED BY DR ARGUETA. SMALL PNEUMO NOTED. PLAN TO REPEAT XRAY IF ANY DECOMPENSATION OVER NOC. NO CHANGE IN RESP STATUS AT THIS TIME. LEVO ON STANDBY, ALBUMIN GIVEN THIS SHIFT. TUBE FEEDS STARTED. BARRERA PATENT, DRAINING TO GRAVITY. WILL CONTINUE TO MONITOR UNTIL REPORT TO ONCOMING NURSE.
--- NOTE | 2021-06-11 20:15 | NUR ---
ASSUMED CARE ASSUMED CARE OF PATIENT AT 1900. REMAINS INTUBATED- 7.5 ETT, 25CM AT TEETH. VENT SETTINGS: AC/VC 26/350/PEEP 16/FIO2 50%. SEDATED WITH PROPOFOL AT 40MCG/KG/MIN. SPONTAENOUS MOVEMENT NOTED. NOT FOLLOWING COMMANDS AT THIS TIME. BILATERAL SOFT WRIST RESTRAINTS IN PLACE TO PREVENT SELF-EXTUBATION. SUBCUTANEOUS EMPHYSEMA NOTED TO ANTERIOR/POSTERIOR RIGHT SIDE OF NECK, RIGHT BREAST/CHEST WALL, AND RIGHT UPPER ARM. NO CREPITUS FELT. SKIN IS FLUSHED. MONITOR SHOWS NSR, RATE 90s. BP STABLE. AEBRILE. OG WITH VHP AT GOAL RATE OF 20CC/HR. 30CC H20 FLUSHES Q4H. BARRERA PATENT AND DRAINING TO GRAVITY- CLOUDY YELLOW URINE WITH SEDIMENT NOTED.
[2021-06-12 03:21] LABS: BASOPHILS ABSOLUTE AUTO 0.07 K/mm3 (0.00-0.23); BASOPHILS PERCENT AUTO 1 % (0-2); EOSINOPHILS PERCENT AUTO 0 % (0-6); Hematocrit 39.5 % (33.0-51.0); Hemoglobin 12.5 g/dL (11.5-16.0); IMMATURE GRAN ABSOLUTE AUTO 0.59 K/mm3 (0.00-0.10); IMMATURE GRAN PERCENT AUTO 6 % (0-1); LYMPHOCYTES ABSOLUTE AUTO 0.56 K/mm3 (0.84-5.20); LYMPHOCYTES PERCENT AUTO 5 % (21-46); MONOCYTES ABSOLUTE AUTO 0.49 K/mm3 (0.16-1.47); MONOCYTES PERCENT AUTO 5 % (4-13); Mean Corpuscular HGB Conc 31.6 g/dL (31.5-36.5); Mean Corpuscular Volume 85 fL (80-100); Mean Platelet Volume 9.9 fL (9.1-12.4); NEUTROPHILS ABSOLUTE AUTO 8.65 K/mm3 (1.96-9.15); NEUTROPHILS PERCENT AUTO 84 % (41-73); Platelet Count 239 K/mm3 (150-400); RDW Coefficient Variation 12.6 % (11.7-14.2); RDW Standard Deviation 39.1 fL (35.1-46.3); Red Blood Cell Count 4.63 M/mm3 (3.80-5.20); White Blood Cell Count 10.36 K/mm3 (4.00-11.30)
[2021-06-12 03:37] LABS: Albumin, Blood 2.9 g/dL (3.4-5.0); Anion Gap 2 mmol/L (6-16); Blood Urea Nitrogen 28 mg/dL (8-24); Bun/Creatinine Ratio 42.9 (12.0-20.0); CO2, Blood 26 mmol/L (21-32); Calcium, Blood 8.6 mg/dL (8.5-10.1); Chloride, Blood 113 mmol/L (98-108); Creatinine, Blood 0.65 mg/dL (0.40-1.00); Glomerular Filtration Rate >60 (60-); Glucose, Blood 332 mg/dL (70-99); Phosphorus, Blood 2.9 mg/dL (2.5-4.9); Potassium, Blood 4.9 mmol/L (3.5-5.5); Sodium, Blood 141 mmol/L (136-145)
[2021-06-12 03:41] LABS: BAND PERCENT MAN 3 % (0-8); BASOPHILS PERCENT MAN 0 % (0-2); EOSINOPHILS PERCENT MAN 0 % (0-6); LYMPHOCYTES ABSOLUTE MAN 0.51 K/mm3 (0.84-5.20); LYMPHOCYTES PERCENT MAN 5 % (21-46); METAMYELOCYTE ABSOLUTE MAN 0.41 K/mm3 (0.00-0.00); METAMYELOCYTE PERCENT MAN 4 % (0-0); MONOCYTES ABSOLUTE MAN 0.31 K/mm3 (0.16-1.47); MONOCYTES PERCENT MAN 3 % (4-13); MYELOCYTE PERCENT MAN 1 % (0-0); NEUTROPHILS ABSOLUTE MAN 9.01 K/mm3 (1.96-9.15); SEG NEUTROPHILS PERCENT MAN 84 % (41-73); TOTAL CELLS COUNTED 100
--- NOTE | 2021-06-12 06:26 | NUR ---
SHIFT SUMMARY NO ACUTE CHANGES. REMAINS INTUBATED. AC/VC 26/350/PEEP 12, FIO2 50%. SEDATED WITH PROPOFOL AT 50MCG/KG/MIN. MOVES ALL EXTREMTIES, BUT NOT FOLLOWING COMMANDS. VSS. TMAX 99.3F. OG WITH VITAL HIGH PROTEIN AT GOAL RATE OF 20CC/HR. RESIDUALS <10CC. BARRERA PATENT AND DRAINING TO GRAVITY. WILL REPORT TO ONCOMING RN WHEN AVAILABLE.
--- NOTE | 2021-06-12 07:54 | NUR ---
0710: SBAR FROM NIGHT RN. PROPFOL RUNNINGA T 50MCG/KG/HR AT 90KG SETTINGS. VENT SETTINGS AC-VC+ AT 26/350/12/50% WITH SP02 93%. EMERGENCY EQUIPMENT AT BEDSIDE AND FUNCTIONAL. ALARM LIMITS REVIEWED ON MONITOR.
--- NOTE | 2021-06-12 11:03 | NUR ---
UPDATE TO SARAH, SISTER OF PATIENT. PT HAD PICC PLACED BY WILLI MUSTAFA.
--- NOTE | 2021-06-12 12:28 | NUR ---
PT REQUIRED INCREASE IN FIO2 TO 70%. SQ EMPHYSEMA APPEARS WORSE TO R NECK. NO DISTRESS NOTED. CXR ORDERED STAT TO EVAL FOR WORSENING PNEUMO.
--- NOTE | 2021-06-12 13:19 | NUR ---
SPO2 SUSTAINED AT 88% ON FIO2 OF 70%. INCREASED TO 80%. SPO2 NOW 93%.
--- NOTE | 2021-06-12 16:06 | NUR ---
SHIFT SUMMARY NEURO: PT MOVED ALL EXTREMETIES OCCASIONALLY THROUGHOUT SHIFT, NO COMMANDS FOLLOWED. AFTER MULTIPLE PRN MEDICATIONS FOR PAIN/AGITATION, STARTED FENTANYL MILK ROUTE SUPERVISOR TO IMPROVE COMFORT/SEDATION. INCREASED PROPOFOL TO 60MCG/KG/MIN. RESP: REPEAT CXR DONE TODAY S/P INCREASE IN FIO2 REQUIREMENTS FROM 50% TO 80%. NOW VENT SETTINGS ARE AC/VC 26/360/12/60%. AIR SWELLING SUBJECTIVELY WORSENED TO R NECK/CHEST. CARDIAC: HYPERTENSIVE, TACHYCARDIC (SEE PAIN INTERVENTION). AFEBRILE. LUE PICC LINE WAS PLACED TODAY. L AC IV WAS D/C'D TODAY. GI/: NO BM OF 1600. GOOD UOP. INTEG: Q2HR POSITION CHANGES. PSYCH: MULTIPLE UPDATES GIVEN TO FAMILY & FRIEND ON APPROVED LIST.
--- NOTE | 2021-06-12 18:59 | NUR ---
late entry not did not post. spoke with ling time family friend darryl barron she jaeger statyed involved in the patient live and her sisters. pt's other sister is also developmentally delayed. Her other sister also has some disabilities and is in long term. No family available. unkown poa. review [facility] doctor eyad family firend is open to be a resource and contribute but does not want any decision making responsibilty. Ethic consult will get wtow physician to make the decisions. Will notify aps on sunday.
--- NOTE | 2021-06-12 20:35 | NUR ---
ASSESSMENT/ASSUMED CARE PT [facility]UB[facility] AND [facility] V[facility]. PULLS ON RESTRAINTS AND COUGHS WITH ORAL CARE. NOT FOLLOWING INSTRUCTIONS. BILAT SOFT WRIST RESTRAINTS ON. LUNGS DECREASED T/O. VENT SETTINGS AC/VC 26/360/12/55%. HEART RATE REGULAR. BP STABLE. BT+HYPOACTIVE. RESIDUAL 25 ML, REFED. TUBE FEED VIA OG VITAL HP AT 20 ML/HR, WATER 30 ML Q4HR. BARRERA CATH PATENT DRAINING YELLOW URINE. PICC LINE TO LEFT UPPER ARM WITH PROPOFOL AT 60 MCQ/KG/MIN AND FENTANYL 50 MCQ/HR. IV 20G TO RIGHT AC SALINE LOCKED, SITE CLEAR.
[2021-06-13 03:56] LABS: BASOPHILS ABSOLUTE AUTO 0.07 K/mm3 (0.00-0.23); BASOPHILS PERCENT AUTO 1 % (0-2); EOSINOPHILS PERCENT AUTO 0 % (0-6); Hematocrit 37.9 % (33.0-51.0); Hemoglobin 11.9 g/dL (11.5-16.0); IMMATURE GRAN ABSOLUTE AUTO 0.89 K/mm3 (0.00-0.10); IMMATURE GRAN PERCENT AUTO 8 % (0-1); LYMPHOCYTES ABSOLUTE AUTO 0.59 K/mm3 (0.84-5.20); LYMPHOCYTES PERCENT AUTO 6 % (21-46); MONOCYTES ABSOLUTE AUTO 0.74 K/mm3 (0.16-1.47); MONOCYTES PERCENT AUTO 7 % (4-13); Mean Corpuscular HGB 27.1 pg (26.0-34.0); Mean Corpuscular HGB Conc 31.4 g/dL (31.5-36.5); Mean Corpuscular Volume 86 fL (80-100); Mean Platelet Volume 9.9 fL (9.1-12.4); NEUTROPHILS ABSOLUTE AUTO 8.45 K/mm3 (1.96-9.15); NEUTROPHILS PERCENT AUTO 79 % (41-73); Platelet Count 262 K/mm3 (150-400); RDW Coefficient Variation 12.5 % (11.7-14.2); RDW Standard Deviation 39.6 fL (35.1-46.3); Red Blood Cell Count 4.39 M/mm3 (3.80-5.20); White Blood Cell Count 10.74 K/mm3 (4.00-11.30)
[2021-06-13 04:20] LABS: Albumin, Blood 2.6 g/dL (3.4-5.0); Anion Gap 4 mmol/L (6-16); Blood Urea Nitrogen 29 mg/dL (8-24); Bun/Creatinine Ratio 47.4 (12.0-20.0); CO2, Blood 27 mmol/L (21-32); Calcium, Blood 8.6 mg/dL (8.5-10.1); Chloride, Blood 111 mmol/L (98-108); Creatinine, Blood 0.61 mg/dL (0.40-1.00); Glomerular Filtration Rate >60 (60-); Glucose, Blood 378 mg/dL (70-99); Phosphorus, Blood 3.5 mg/dL (2.5-4.9); Potassium, Blood 4.9 mmol/L (3.5-5.5); Sodium, Blood 142 mmol/L (136-145)
[2021-06-13 05:22] LABS: BAND PERCENT MAN 3 % (0-8); BASOPHILS PERCENT MAN 0 % (0-2); EOSINOPHILS PERCENT MAN 0 % (0-6); LYMPHOCYTES ABSOLUTE MAN 0.75 K/mm3 (0.84-5.20); LYMPHOCYTES PERCENT MAN 7 % (21-46); METAMYELOCYTE ABSOLUTE MAN 0.21 K/mm3 (0.00-0.00); METAMYELOCYTE PERCENT MAN 2 % (0-0); MONOCYTES ABSOLUTE MAN 0.42 K/mm3 (0.16-1.47); MONOCYTES PERCENT MAN 4 % (4-13); NEUTROPHILS ABSOLUTE MAN 9.34 K/mm3 (1.96-9.15); SEG NEUTROPHILS PERCENT MAN 84 % (41-73); TOTAL CELLS COUNTED 100
--- NOTE | 2021-06-13 06:24 | NUR ---
SHFIT SUMMARY PT CONT INTUBATED AND ON [facility] VENT. CURRENT VENT SETTINGS AC 26/360/12/60%. BILAT WRIST RESTRAINTS ON. PT SEDATED WITH PROPOFOL AND FENTANYL. VSS. TUBE FEED AT GOAL. PICC LINE TO LEFT UPPER ARM, SITE CLEAR. PT TURNED Q2HRS, ORAL CARE DONE Q4HR. BEDBATH AND LINEN CHANGE DONE. REPORT TO ON COMING NURSE
--- NOTE | 2021-06-13 07:55 | NUR ---
ASSUMED CARE: REPORT RECEIVED FROM HAILEY Hong RN & VICKEY Allison RN. ASSUMED CARE OF THIS PT AT APPROX 0700. ON ASSESSMENT, THE PT IS SEDATED W/ PROPOFOL & FENTANYL. EYES OPEN TO VERBAL STIMULUS BUT PT NOT TRACKING STAFF IN ROOM. FIELD SPONTANEOUSLY BUT DOES NOT FOLLOW DIRECTIONS. LS DIM T/O, VENT SETTINGS: AC/VC 26/350/12/50% W/ O2 SATS > 90% ON AVG. MONITOR SHOWS SR W/ HR 60-70s, BP STABLE. OGT IN PLACE W/ TUBE FEEDS INFUSING AT GOAL RATE, MODERATE RESIDUALS - SEE I&O. NO BM, BOWEL CARE PER EMAR. BARRERA PATENT/ DRAINING YELLOW URINE W/ SEDIMENT NOTED. SKIN CONDITION OVERALL INTACT, Q2H REPOSITIONING TO MAINTAIN SKIN INTEGRITY. WILL CONTINUE TO MONITOR & UPDATE NEEDED.
--- NOTE | 2021-06-13 08:40 | NUR ---
LATE ENTRY COPIED FROM [facility] EMR - WEEKEND UPDATES UPDATE 06/12/21: PT. NOT TOLERATING CPAP WELL. STAFF WAS UNABLE TO REDIRECT PT. UNFORTUNATELY, NEED FOR INTUBATION OCCURRED ON 06/10/21 TO MAINTAIN APPROPRIATE OXYGENATION. 06/12/21 - DAY 5 OF HOSPITALIZATION. DAY 2 OF MECHANICAL VENTILATION. PEEP 12. FIO2 50%. CONCERN LAST WEEK REGARDING NOK. INITIALLY FRIENDS LISTED IN CONTACTS DECLINED TO ASSIST IN MEDICAL DECISION MAKING. PATIENT'S SISTER HAD BEEN CONTACTED BY DR. ZHOA AND UPDATED. SISTER IS DEVELOPMENTALLY DELAYED AND HAS CAREGIVER. ACCORDING TO FRIENDS, PT. HAS ANOTHER SISTER WHO IS INCARCERATED CURRENTLY. IT WAS DETERMINED THAT ZEHRA SERGE LISTED IN CHARGE IS TRULLY THE MOST APPROPRIATE NOK FOR PT. SHE IS HER LONG TIME CAREGIVER AND BEST UNDERSTANDS THE PATIENT'S WISHES PREVIOUSLY. WHEN DR. ACOSTA SPOKE WITH HER ON 06/10/21 SHE STATED THAT PT. HAD DISCUSSED WANTING ALL LIFE SAVING MEASURES IF INDICATED.
--- NOTE | 2021-06-13 18:44 | NUR ---
SHIFT SUMMARY: NO ACUTE CHANGES SINCE PRIOR UPDATES. PT SEDATED W/ PROPOFOL & FENTANYL, RESTING QUIETLY. AWAKENS TO VERBAL & PHYSICAL STIMULUS, FOLLOWING SOME SIMPLE COMMANDS. LS DIM T/O, VENT SETTINGS: AC/VC 26/350/10/50% W/ O2 SATS > 90%. MONITOR SHOWS SR W/ HR 80s, BP STABLE. HTN NOTED W/ INCREASED AGITATION. OGT IN PLACE W/ TUBE FEEDS INFUSING AT GOAL RATE, LOW RESIDUALS. BARRERA PATENT/ DRAINING. SKIN CONDITION OVERALL INTACT, Q2H REPOSITIONING TO MAINTAIN SKIN INTEGRITY. WILL CONTINUE TO MONITOR & REPORT OFF TO ONCOMING.
--- NOTE | 2021-06-13 19:05 | NUR ---
suggest care team meeting for plan of carea nd code status as no decision maker will need ethic consult.
--- NOTE | 2021-06-13 20:30 | NUR ---
ASSESSMENT/ASSUMED CARE PT INTUBATED AND ON [facility] VENT. LUNGS DECREASED T/O. VENT SETTINGS AC/VC 26/360/10/50%. SUCTIONED SMALL VIA ET TUBE. HEART RATE ELEVATED 100-120'S. BP STABLE. BT+HYPOACTIVE. OG WITH TUBE FEED VITAL HP AT GOAL RATE 20 ML/HR, WATER 30 ML Q4HR. BARRERA CATH PATENT DRAINING YELLOW URINE. PICC LINE TO LEFT UPPER ARM WITH PROPOFOL AT 60 MCQ/KG/MIN AND FENTANYL 50 MCQ/HR. SITE CLEAR. REPOSITIONED AND ORAL CARE DONE. BILAT SOFT WRIST RESTRAINTS ON. ON FOLLOWING INSTRUCTIONS. OPENS EYES AND MOVES WITH CARE.
--- NOTE | 2021-06-13 21:49 | NUR ---
AGITATION CALL TO DR GRIMM REGARDING ELEVATED HEART RATE AND AGITATION. PT ALREADY MED WITH ATIVAN 2 MG. CURRENTLY RECEIVING PROPOFOL AT 60 MCQ/KG/MIN AND FENTANYL 50 MCQ/HR. EXPLAINED THAT PT HAD BEEN RECEIVING FENTANYL 50 MCQ PRN FOR BREAKTHROUGH. RECEIVED ONE TIME ORDER FOR FENTANYL 50 MCQ.
[2021-06-14 04:34] LABS: Hematocrit 41.3 % (33.0-51.0); Hemoglobin 12.9 g/dL (11.5-16.0); Mean Corpuscular HGB 26.9 pg (26.0-34.0); Mean Corpuscular HGB Conc 31.2 g/dL (31.5-36.5); Mean Corpuscular Volume 86 fL (80-100); Mean Platelet Volume 10.5 fL (9.1-12.4); Platelet Count 278 K/mm3 (150-400); RDW Coefficient Variation 12.1 % (11.7-14.2); RDW Standard Deviation 38.5 fL (35.1-46.3); Red Blood Cell Count 4.79 M/mm3 (3.80-5.20)
[2021-06-14 04:52] LABS: Albumin, Blood 2.6 g/dL (3.4-5.0); Anion Gap 6 mmol/L (6-16); Blood Urea Nitrogen 31 mg/dL (8-24); Bun/Creatinine Ratio 50.7 (12.0-20.0); CO2, Blood 27 mmol/L (21-32); Calcium, Blood 8.8 mg/dL (8.5-10.1); Chloride, Blood 107 mmol/L (98-108); Creatinine, Blood 0.61 mg/dL (0.40-1.00); Glomerular Filtration Rate >60 (60-); Glucose, Blood 405 mg/dL (70-99); Magnesium, Blood 2.2 mg/dL (1.6-2.4); Phosphorus, Blood 3.6 mg/dL (2.5-4.9); Potassium, Blood 4.5 mmol/L (3.5-5.5); Sodium, Blood 140 mmol/L (136-145)
[2021-06-14 05:40] LABS: BAND PERCENT MAN 4 % (0-8); BASOPHILS PERCENT MAN 0 % (0-2); EOSINOPHILS PERCENT MAN 0 % (0-6); LYMPHOCYTES PERCENT MAN 4 % (21-46); MONOCYTES ABSOLUTE MAN 0.63 K/mm3 (0.16-1.47); MONOCYTES PERCENT MAN 5 % (4-13); MYELOCYTE ABSOLUTE MAN 0.25 K/mm3 (0.00-0.00); MYELOCYTE PERCENT MAN 2 % (0-0); NEUTROPHILS ABSOLUTE MAN 11.21 K/mm3 (1.96-9.15); SEG NEUTROPHILS PERCENT MAN 85 % (41-73); TOTAL CELLS COUNTED 100
--- NOTE | 2021-06-14 06:22 | NUR ---
SHIFT SUMMARY PT CONT INTUBATED AND ON [facility] VENT. INCREASED FIO2 DURING THE NIGHT FROM 50% TO 70% DUE TO SPO2 DOWN IN THE 80'S. CURRENT VENT SETTINGS AC/VC 26/360/10/70%. PT MED TWICE DURING THE NIGHT WITH AN ADDITIONAL 50 MCQ OF FENTANYL FOR AGITATION WITH HEART RATE IN THE 120'S. AFTER FENTANYL HEART RATE BACK DOWN TO 80'S. BP STABLE. BT+ HYPOACTIVE. OG WITH TUBE FEED AT GOAL VITAL HP AT 20 ML/HR, WATER 30 ML Q4HR. MODERATE RESIDUAL. NO STOOLS. BARRERA CATH PATENT DRAINING YELLOW URINE. PICC LINE TO LEFT UPPER ARM WITH PROPOFOL AT 60 MCQ/KG/MIN AND FENTANYL 50 MCQ/HR. BILAT SOFT WRIST RESTRAINTS ON. PT PULLS AWAY WITH ORAL CARE AND REPOSITIONING, BUT IS NOT FOLLOWING INSTRUCTIONS. BLOOD GLUCOSE Q6HR WITH SLIDING SCALE INSULIN. REPORT TO ON COMING NURSE
--- NOTE | 2021-06-14 09:04 | NUR ---
This am pt is resting comfortably on vent at 10 peep nd 10% FiO2. Pt was turned and assessed. VSS. Oral care done
--- NOTE | 2021-06-14 18:17 | NUR ---
No physical assessment change since this am. Pt vented, sedated and restrained. López in place. Bowel regimen given this am. Propofol at 50mcg. Fent at 50 mcg. Increasing blood sugars; told Dr. Lim who will look at lantus. Family and piano case maker updated.
--- NOTE | 2021-06-14 19:00 | NUR ---
ASSUMED CARE ASSUMED CARE OF PATIENT. REMAINS INTUBATED- AC/VC+ 26/360/PEEP 10/FIO2 65%. RR 26-28. SEDATED WITH PROPOFOL AT 55MCG/KG/MIN AND FENTANYL GTT AT 50MCG/HR. MOVING ALL EXTREMITIES SPONTANEOUSLY. BILATERAL SOFT WRIST RESTRAINTS IN PLACE TO PREVENT SELF-EXTUBATION. MONITOR SHOWS ST, RATE 110-115. BP STABLE. OG WITH VITAL HIGH PROTEIN AT GOAL RATE OF 20CC/HR. BARRERA PATENT AND DRAINING TO GRAVITY- SEDIMENT NOTED.
[2021-06-15 04:22] LABS: BASOPHILS ABSOLUTE AUTO 0.03 K/mm3 (0.00-0.23); BASOPHILS PERCENT AUTO 0 % (0-2); EOSINOPHILS PERCENT AUTO 0 % (0-6); Hematocrit 39.1 % (33.0-51.0); Hemoglobin 12.3 g/dL (11.5-16.0); IMMATURE GRAN ABSOLUTE AUTO 0.49 K/mm3 (0.00-0.10); IMMATURE GRAN PERCENT AUTO 5 % (0-1); LYMPHOCYTES ABSOLUTE AUTO 0.77 K/mm3 (0.84-5.20); LYMPHOCYTES PERCENT AUTO 8 % (21-46); MONOCYTES ABSOLUTE AUTO 0.54 K/mm3 (0.16-1.47); MONOCYTES PERCENT AUTO 5 % (4-13); Mean Corpuscular HGB 27.2 pg (26.0-34.0); Mean Corpuscular HGB Conc 31.5 g/dL (31.5-36.5); Mean Corpuscular Volume 86 fL (80-100); Mean Platelet Volume 10.8 fL (9.1-12.4); NEUTROPHILS ABSOLUTE AUTO 8.16 K/mm3 (1.96-9.15); NEUTROPHILS PERCENT AUTO 82 % (41-73); Platelet Count 262 K/mm3 (150-400); RDW Coefficient Variation 12.1 % (11.7-14.2); RDW Standard Deviation 38.1 fL (35.1-46.3); Red Blood Cell Count 4.53 M/mm3 (3.80-5.20); White Blood Cell Count 9.99 K/mm3 (4.00-11.30)
[2021-06-15 04:53] LABS: Albumin, Blood 2.4 g/dL (3.4-5.0); Anion Gap 5 mmol/L (6-16); Blood Urea Nitrogen 36 mg/dL (8-24); Bun/Creatinine Ratio 49.7 (12.0-20.0); CO2, Blood 27 mmol/L (21-32); Calcium, Blood 8.7 mg/dL (8.5-10.1); Chloride, Blood 109 mmol/L (98-108); Creatinine, Blood 0.72 mg/dL (0.40-1.00); Glomerular Filtration Rate >60 (60-); Glucose, Blood 416 mg/dL (70-99); Magnesium, Blood 2.4 mg/dL (1.6-2.4); Phosphorus, Blood 4.1 mg/dL (2.5-4.9); Potassium, Blood 4.7 mmol/L (3.5-5.5); Sodium, Blood 141 mmol/L (136-145)
[2021-06-15 05:02] LABS: Triglycerides 1074 mg/dL (30-160)
--- NOTE | 2021-06-15 06:28 | NUR ---
SHIFT SUMMARY NO ACUTE CHANGES. VENT SETTINGS: AC/VC+ 26/360/PEEP 10/FIO2 NOW 55%. RR 26-20. SEDATED WITH PROPOFOL BETWEEN 45-55MCG/KG/MIN- NOW INFUSING AT 50MCG/KG/MIN. FENTANYL GTT AT 50MCG/HR SEDATION ADJUNCT. MEDICATED WITH ATIVAN 2MG IV X 1 DOSE FOR AGITATION. MOVES ALL EXTREMITIES, BUT NOT FOLLOWING COMMANDS. LEVOPHED STARTED AT APPROXIMATELY 0330 TO MAINTAIN MAP >65. LEVOPHED ON STANDBY AT THIS TIME. OG WITH VITAL HIGH PROTEIN AT GOAL RATE OF 20CC/HR. RESIDUALS 10-120CC. BARRERA PATENT AND DRAINING TO GRAVITY. WILL REPORT TO ONCOMING RN WHEN AVAILABLE.
--- NOTE | 2021-06-15 08:00 | NUR ---
DR. WIGGINS UPDATED ON PATIENT STATUS. INFORMED THAT PATIENT HAD OVERNIGHT TMAX OF 99.2 DEGREES FAHRENHEIT. INFORMED THAT GLUCOSE IN THE 400S BUT THAT LONG ACTING INSULIN INCREASED THIS AM. INFORMED THAT PAINT STRIPPER RN REPORTED CREPITUS HAS IMPROVED. NO ORDERS RECEIVED AT THIS TIME.
--- NOTE | 2021-06-15 09:20 | NUR ---
INITIAL ASSESSMENT PATIENT INTUBATED AND ON SEDATION. PATIENT OCCASIONALLY MOVES ALL 4 EXTREMITIES, BUT WITHOUT PURPOSE. PATIENT AFEBRILE. NO SIGNS OF PAIN NOTED AT THIS TIME. ETT 7.6, 25 AT TEETH. PATIENT ON AC/VC+ 26, 360, 10, 55% FIO2. RR IN THE 20S. LUNGS CLEAR TO AUSCULTATION. SCANT AMOUNT OF WHITE SECRETIONS FROM ETT. CREPITUS NOTED IN R NECK, UPPER CHESTS, AND BILAT BREASTS. PATIENT SR TO ST, HR 80S TO LOW 100S. SBP 80S TO 1-TEENS. ABD SOFT AND HYPOACTIVE BS NOTED. VHP INFUSING AT GOAL RATE OF 20 MLS/ HR WITH 30 ML WATER FLUSH Q4H. RESIDUAL OF 15 MLS REINSTILLED. LAST BM DOCUMENTED ON 06/08. PRN MOM GIVEN. BARRERA DRAINING DARK YELLOW COLORED URINE. SKIN APPEARS WNL. FENTANYL AT 50 MCG/ HOUR, PROPOFOL AT 50 MCG/ KG/ MINUTE, NS TKO. LEVOPHED ON SB. PATIENT ON SCHEDULED ROCEPHIN AND AZITHROMYCIN. BED LOW. WILL CONITINUE TO MONITOR PATIENT FREQUENTLY THROUGHOUT SHIFT.
--- NOTE | 2021-06-15 11:00 | NUR ---
NO SEDATION VACATION TODAY PER DR. RICHARDSON.
--- NOTE | 2021-06-15 14:05 | NUR ---
PATIENT AFEBRILE. FENTANYL DRIP INCREASED TO 100 MCG/ HOUR, PROPOFOL DECREASED TO 35 MCG/ KG/MINUTE IN HOPES OF DECREASING TRIGLYCERIDES. HR 80S TO LOW 100S. SBP 90S TO 120S. RR IN THE 20S. AC 26, TV 360, PEEP 10 AND 60% FIO2. LUNGS COARSE THROUGHOUT. TF CHANGED TO PIVOT 1.5 AT NEW GOAL RATE OF 20 MLS/ HOUR. BLOOD SUGAR OF 370; COVERAGE GIVEN. NO OTHER ACUTE CHANGES TO NOTE ON AT THIS TIME. PATIENT APPEARS WITHOUT PAIN OR DISTRESS. WILL CONTINUE TO MONITOR.
--- NOTE | 2021-06-15 16:40 | NUR ---
PATIENT HAS TEMP OF 99.9 DEGREES FAHRENHEIT. HR IN THE 80S. SBP 90S TO LOW 100S. NO OTHER ACUTE CHANGES TO NOTE ON AT THIS TIME. WILL CONTINUE TO MONITOR.
--- NOTE | 2021-06-15 19:00 | NUR ---
SHIFT SUMMARY PATIENT REMAINED INTUBATED AND SEDATED. PATIENT CONTINUED TO GRIMACE WITH CARE AND HAVE GROSS MOVEMENTS OF EXTREMITIES. NO PURPOSEFUL MOVEMENTS NOTED. TMAX OF 99.9 DEGREES FAHRENHEIT. ETT CHANGED FROM 25 TO 26 CM AT THE TEETH. AC/ VC 26, 360, PEEP 10 AND FIO2 INCREASED FROM 55% TO 60% FIO2. CREPITUS TO CHEST, NECK AND BREASTS REMAIN UNCHANGED. PATIENT REMAINED SR TO ST, HR 80S TO 120S. SBP 80S TO 120S. LEVOPHED REMAINED ON SB. TF CHANGED TO PIVOT 1.5 AT GOAL RATE OF 20 MLS/ HOUR. NO BM THIS SHIFT. PRN MOM GIVEN. 1650 MLS OF DARK YELLOW URINE OUT FROM BARRERA. NO CHANGE TO SKIN NOTED. PATIENT REPOSITIONED T/O SHIFT. FENTANYL INCREASED FROM 50 TO 100 MCG/ HOUR, PROPOFOL DECREASED FROM 50 TO 25 MCG/ KG/ MINUTE. LEVOPHED REMAINED ON SB. BLOOD SUGARS 300S TO 400S. PATIENT APPEARS COMFORTABLE AT THIS TIME. REPORT WILL BE GIVEN TO ONCOMING MOTORCYCLE TESTER NURSE SHORTLY.
--- NOTE | 2021-06-15 19:00 | NUR ---
ASSUMED CARE ASSUMED CARE OF PATIENT. REMAINS INTUBATED- AC/VC+ 26/360/PEEP 10/FIO2 60%. RR 26-28. SEDATED WITH PROPOFOL AT 25MCG/KG/MIN AND FENTANYL GTT AT 100MCG/HR. MOVING ALL EXTREMITIES SPONTANEOUSLY. BILATERAL SOFT WRIST RESTRAINTS IN PLACE TO PREVENT SELF-EXTUBATION. MONITOR SHOWS ST, RATE 100-105. BP STABLE. OG WITH PIVOT 1.5 AT GOAL RATE OF 20CC/HR. BARRERA PATENT AND DRAINING TO GRAVITY- SEDIMENT NOTED. SEE SURGE ASSESSMENT FOR FULL ASSESSMENT.
[2021-06-16 04:09] LABS: Hematocrit 41.5 % (33.0-51.0); Hemoglobin 12.9 g/dL (11.5-16.0); Mean Corpuscular HGB 27.2 pg (26.0-34.0); Mean Corpuscular HGB Conc 31.1 g/dL (31.5-36.5); Mean Corpuscular Volume 88 fL (80-100); Mean Platelet Volume 10.7 fL (9.1-12.4); Platelet Count 236 K/mm3 (150-400); RDW Standard Deviation 38.5 fL (35.1-46.3); Red Blood Cell Count 4.74 M/mm3 (3.80-5.20); White Blood Cell Count 15.73 K/mm3 (4.00-11.30)
[2021-06-16 04:34] LABS: BASOPHILS PERCENT MAN 0 % (0-2); EOSINOPHILS ABSOLUTE MAN 0.15 K/mm3 (0.00-0.68); EOSINOPHILS PERCENT MAN 1 % (0-6); LYMPHOCYTES ABSOLUTE MAN 2.35 K/mm3 (0.84-5.20); LYMPHOCYTES PERCENT MAN 15 % (21-46); MONOCYTES ABSOLUTE MAN 1.57 K/mm3 (0.16-1.47); MONOCYTES PERCENT MAN 10 % (4-13); MYELOCYTE ABSOLUTE MAN 0.15 K/mm3 (0.00-0.00); MYELOCYTE PERCENT MAN 1 % (0-0); NEUTROPHILS ABSOLUTE MAN 11.48 K/mm3 (1.96-9.15); SEG NEUTROPHILS PERCENT MAN 73 % (41-73); TOTAL CELLS COUNTED 100
[2021-06-16 04:37] LABS: Anion Gap 4 mmol/L (6-16); Blood Urea Nitrogen 37 mg/dL (8-24); Bun/Creatinine Ratio 49.5 (12.0-20.0); CO2, Blood 29 mmol/L (21-32); Calcium, Blood 8.9 mg/dL (8.5-10.1); Chloride, Blood 112 mmol/L (98-108); Creatinine, Blood 0.75 mg/dL (0.40-1.00); Glomerular Filtration Rate >60 (60-); Glucose, Blood 274 mg/dL (70-99); Magnesium, Blood 2.2 mg/dL (1.6-2.4); Potassium, Blood 4.1 mmol/L (3.5-5.5); Sodium, Blood 145 mmol/L (136-145)
--- NOTE | 2021-06-16 05:59 | NUR ---
SHIFT SUMMARY NO ACUTE CHANGES DURING NOC. REMAINS INTUBATED- VENT SETTINGS UNCHANGED. SEDATED WITH PROPOFOL BETWEEN 20-25MCG/KG/MIN. NOW INFUSING AT 20MCG/KG/MIN. FEMTANYL GTT CONTINUES AT 100MCG/HR. MEDICATED WITH ATIVAN 2MG IV X 2 DOSES FOR RESTLESSNESS. CONTINUES TO MOVE ALL EXTREMITIES SPONTANEOUSLY AND PURPOSEFULLY. NOT FOLLOWING COMMANDS. TUBE FEEDING CONTINUES AT GOAL RATE- RESIDUALS <10CC. BARRERA PATENT AND DRAINING DARK YELLOW URINE WITH SEDIMENT NOTED. FACE CONTINUES TO BE FLUSHED AND SKIN IS CLAMMY AT TIMES. TMAX 99.3F. VSS WITH MAP >60-65. WILL REPORT TO ONCOMING SHIFT WHEN AVAILABLE.
--- NOTE | 2021-06-16 08:00 | NUR ---
INITIAL ASSESSMENT PATIENT INTUBATED AND ON SEDATION. PATIENT ON FENTANYL DRIP AT 100 MCG/ HOUR, PROPOFOL AT 20 MCG/ KG/ MINUTE, NS TKO. PATIENT RESPONDS TO PAINFUL STIMULI. PATIENT SPONTANEOUSLY MOVES EXTREMITIES. NO SIGNS OF PAIN NOTED AT THIS TIME. PATIENT HAS TEMP OF 99.6 DEGREES FAHRENHEIT THIS AM. PATIENT ON AC/ VC+ 26, TV 360, PEEP 10 AND FIO2 AT 60%. LUNGS COARSE THROUGHOUT. SCANT AMOUNT OF THIN, LIGHT YELLOW COLORED SPUTUM NOTED FROM ETT. RR IN THE 20S. PATIENT SR TO ST, HR 90S TO LOW 100S. SBP 90S TO LOW 100S. LEVOPHED ON STANDBY. ABD SOFT, MILD DISTENTION, WITH NORMOACTIVE BOWEL SOUNDS NOTED. TF INFUSING AT GOAL RATE. RESIDUAL OF ZERO THIS AM. LAST BM ON 06/08. PRN SUPPOSITORY GIVEN. BARRERA DRAINING MARÍA COLORED URINE. FACE FLUSHED. OTHERWISE SKIN APPEARS C/D/I. BED LOW. WILL CONTINUE TO MONITOR PATIENT FREQUENTLY THROUGHOUT SHIFT.
--- NOTE | 2021-06-16 12:45 | NUR ---
PATIENT AFEBRILE. HR 90S TO LOW 100S. SBP IN THE 1-TEENS. VENT SETTINGS: AC/ VC+ 26, TV 420, TI 0.85, PEEP 8 AND 45% FIO2. RR IN THE 20S. PATIENT GIVEN OT 20 MG IV LASIX. PRECEDEX AT 0.4 MCG/ KG/ HOUR, PROPOFOL AT 20 MCG/ KG/ HR. BLOOD SUGAR OF 362; COVERAGE GIVEN. TF INCREASED TO NEW GOAL RATE OF 35 MLS/ HOUR. NO OTHER ACUTE CHANGES TO NOTE ON AT THIS TIME. WILL CONTINUE TO MONITOR.
--- NOTE | 2021-06-16 17:40 | NUR ---
PATIENT AFEBRILE. HR IN THE 80S. SBP 70S TO 90S. SEDATION DECREASED. RR IN THE 20S. FIO2 INCREASED FROM 45% TO 50%. BLOOD SUGAR 310; COVERAGE GIVEN.
--- NOTE | 2021-06-16 18:20 | NUR ---
SHIFT SUMMARY PATIENT REMAINED INTUBATED AND ON SEDATION. PATIENT CONTINUED TO OCCASIONALLY AND SPONTANEOUSLY MOVE EXTREMITIES. PATIENT DID NOT FOLLOW ANY COMMANDS. PROPOFOL CURRENTLY ON SB AND PRECEDEX AT 0.4 MCG/ KG/ HOUR. PATIENT HAD TMAX OF 99.9 DEGREES FAHRENHEIT. VENT SETTINGS CHANGED DURING SHIFT AND ARE CURRENTLY AT AC/VC+ 26, TV 420, PEEP 8 AND FIO2 AT 50%. LUNGS REMAINED MOSTLY COARSE. PATIENT CONTINUED TO HAVE SCANT AMOUNT OF THIN, LIGHT YELLOW SECRETIONS OUT FROM ETT. CREPITUS REMAINED UNCHANGED THIS SHIFT. PATIENT SR TO ST, HR 80S TO LOW 100S. SBP RANGED FROM 70S TO 120S. TF INCREASED TO NEW GOAL OF 35 MLS/ HOUR. NO BM THIS SHIFT. PATIENT GIVEN PRN SUPPOSITORY. 900 MLS OF MARÍA COLORED URINE OUT FROM BARRERA. NO CHANGE IN SKIN. PATIENT REPOSITIONED T/O SHIFT. FENTANYL DRIP REMAINS AT 100 MCG/ HOUR. NS TKO. BLOOD SUGARS IN THE 300S. PATIENT CHANGED FROM Q6H TO Q4H BLOOD SUGAR CHECKS. PATIENT RECEIVED 20 MG IV LASIX OT THIS SHIFT. PATIENT APPEARS COMFORTABLE AT THIS TIME. BED LOW, CALL LIGHT IN REACH. REPORT WILL BE GIVEN TO ASSUMING STATIONARY STEAM ENGINEER NURSE SHORTLY.
--- NOTE | 2021-06-16 19:00 | NUR ---
ASSUMED CARE ASSUMED CARE OF PATIENT. REMAINS INTUBATED- AC/VC+ 26/420/PEEP 8/FIO2 45%. RR 26-27. SEDATED WITH PRECEDEX AT 0.4MCG/KG/HR AND FENTANYL AT 100MCG/HR. SPONTANEOUS MOVEMENT NOTED IN ALL EXTREMITIES. MONITOR SHOWS NSR, RATE 80s. SLIGHTLY HYPOTENSIVE, BUT MAP >60. OG WITH PIVOT 1.5 AT GOAL RATE OF 35CC/HR. BARRERA PATENT AND DRAINING TO GRAVITY. SEE SURGE ASSESSMENT FOR FULL ASSESSMENT.
[2021-06-17 04:34] LABS: BASOPHILS ABSOLUTE AUTO 0.05 K/mm3 (0.00-0.23); BASOPHILS PERCENT AUTO 0 % (0-2); EOSINOPHILS ABSOLUTE AUTO 0.02 K/mm3 (0.00-0.68); EOSINOPHILS PERCENT AUTO 0 % (0-6); Hematocrit 40.1 % (33.0-51.0); Hemoglobin 12.4 g/dL (11.5-16.0); IMMATURE GRAN ABSOLUTE AUTO 0.46 K/mm3 (0.00-0.10); IMMATURE GRAN PERCENT AUTO 3 % (0-1); LYMPHOCYTES ABSOLUTE AUTO 2.42 K/mm3 (0.84-5.20); LYMPHOCYTES PERCENT AUTO 13 % (21-46); MONOCYTES ABSOLUTE AUTO 1.56 K/mm3 (0.16-1.47); MONOCYTES PERCENT AUTO 8 % (4-13); Mean Corpuscular HGB 26.7 pg (26.0-34.0); Mean Corpuscular HGB Conc 30.9 g/dL (31.5-36.5); Mean Corpuscular Volume 86 fL (80-100); Mean Platelet Volume 11.3 fL (9.1-12.4); NEUTROPHILS ABSOLUTE AUTO 14.02 K/mm3 (1.96-9.15); NEUTROPHILS PERCENT AUTO 76 % (41-73); Platelet Count 236 K/mm3 (150-400); RDW Standard Deviation 37.8 fL (35.1-46.3); Red Blood Cell Count 4.65 M/mm3 (3.80-5.20); White Blood Cell Count 18.53 K/mm3 (4.00-11.30)
[2021-06-17 04:48] LABS: Anion Gap 5 mmol/L (6-16); Blood Urea Nitrogen 46 mg/dL (8-24); Bun/Creatinine Ratio 51.7 (12.0-20.0); CO2, Blood 27 mmol/L (21-32); Calcium, Blood 8.8 mg/dL (8.5-10.1); Chloride, Blood 114 mmol/L (98-108); Creatinine, Blood 0.89 mg/dL (0.40-1.00); Glomerular Filtration Rate >60 (60-); Glucose, Blood 412 mg/dL (70-99); Phosphorus, Blood 1.6 mg/dL (2.5-4.9); Potassium, Blood 3.8 mmol/L (3.5-5.5); Sodium, Blood 146 mmol/L (136-145)
--- NOTE | 2021-06-17 08:31 | NUR ---
ASSUMED PT CARE THIS AM. PT ON PRECEDEX 1.4, FENTANYL 100MCG/HR. RASS SCORE -2, CPOT 1. PUPPILS EQUAL BUT SLUGGISH. NOT FOLLOWING COMMANDS, FIELD TO TACTILE STIM. VENT SETTINGS 26, 420, 55%, PEEP 8. MINIMAL THIN CLEAR SECRETIONS ORAL AND VIA ETT. OGT PLACEMENT CHECKED VIA AIR AUSCULTATION. DISCUSSED WITH MD MCGINNIS ADDITION OF MIDODRINE TO GET PT OFF LOW DOSE LEVO (CURRENTLY AT 3 MCG), AND CBG CONTINUES TO BE ELEVATED IN 300S.
[2021-06-17 11:44] LABS: Source, Urine Catheter
[2021-06-17 11:55] LABS: Appearance, Urine Hazy (Clear); Bilirubin, Urine Neg (Neg); Blood, Urine 3+ (Neg); Color, Urine Yellow (P-Yellow); Glucose Qualitative, Urine 4+ (Neg); Ketones, Urine 1+ (Neg); Leukocyte Esterase, Urine 1+ (Neg); Nitrite, Urine Neg (Neg); Protein, Urine 3+ (Neg); Specific Gravity, Urine 1.025 (1.003-1.022); Urobilinogen, Urine NORM (Normal)
[2021-06-17 12:08] LABS: Bacteria Mod /hpf; Yeast/Fungi Urine Many /hpf
[2021-06-17 12:09] LABS: WBC Cast 0-2 /lpf (0)
[2021-06-17 12:10] LABS: RBC Cast 0-2 /lpf (0); Squamous Epithelial Cells Rare /hpf (Few)
--- NOTE | 2021-06-17 15:49 | NUR ---
CBG CHECK FROM BLOOD DRAW TOO HIGH TO REGISTER ON GLUCOMETER, CAP BG CHECK 445, STAT BLOOD BG ORDERED, MD ARGUETA INFORMED ON HYPERGLYCEMIA. PER , PT WILL BE STARTED ON INSULIN GTT, DO NOT GIVE SSI. SPOKE WITH PLUMBING CONTRACTOR, NO INSULIN GTT PROTOCOL UTILIZED BY [facility] AT THIS TIME, THIS IS CONFIRMED BY MD ARGUETA. THIS RN VOICED CONCERN OF NOT HAVING PROTOCOL FOR ADJUSTING INSULIN GTT. MD ARGUETA STATES SHE WILL WRITE IN PARAMETERS FOR ADJUSTING INSULIN GTT RATHER THAN RELYING ON NURSING JUDGEMENT. PER MD ARGUETA, ELECTROLYTES WILL BE RECHECKED IN AM, RATHER THAN Q 4 HRS.
[2021-06-17 15:59] LABS: Glucose, Blood 539 mg/dL (70-99)
--- NOTE | 2021-06-17 18:21 | NUR ---
PT NEEDING INCREASED 02 REQUIRMENTS AND LEVO TO MAINTIAN SATS AND MAPS THIS AFTERNOON, WELL ONGOING HYPERGLYCEMIA. MD ARGUETA AND MD MCGINNIS NOTIFIED AT 1530 THAT CBG READING GREATER THAN 500, LEVO TITRATED UP TO 16, DIFFICULTY MAINTAINING MAPS. PT CONTINUES TO BECOME ACUTELY HYPOTENSIVE. LEVO MAXED AT 23MCG, VASO .04 UNITS/HR STARTED, 1 L NS BOLUS GIVEN, PT STARTED ON INSULIN GTT (UP TO 10 UNITS/HR AT END OF SHIFT), BOOGIE SYNEPHRINE AT 20, MD ARGUETA HAS PUT IN R RADIAL ART LINE FOR CLOSER BP MONITORING. TF TURNED OFF AT 1600 DUE TO INCREASED PRESSOR REQUIREMENTS. MD ARGUETA HAS CALLED PT POA DUE TO SUDDEN DECLINE IN PT STATUS, VM LEFT. STAT BG VIA BLOOD SENT TO LAB READINGS STILL TO HIGH TO REGISTER, MD ARGUETA INFORMED OF THIS. PT STATUS VERY TENOUS. T MAX 102.5, ACETAMINOPHEN GIVEN. RN AND MD AT BEDSIDE FROM [id number] TO STABILIZE PT.
[2021-06-17 18:50] LABS: Glucose, Blood 658 mg/dL (70-99)
--- NOTE | 2021-06-17 18:56 | NUR ---
MD ARGUETA INFORMED OF CRTICAL BG GREATER THAN 600 WITH PT ON 10 UNITS INSULIN GTT, INSTRUCTED TO INCREASE INSULIN GTT TO 15UNITS/HR, RECHECK IN 1 HR
--- NOTE | 2021-06-17 20:00 | NUR ---
ASSUMED CARE OF PT AT 1915. REPORT RECEIVED. PT PRESENTS IN BED. INTUBATED. PT WITH HYPOTENSION AND OXYGEN SATURATIONS 80-88 PERCENT. HAVE INCREASED FIO2 TO [address] ARGUETA PRESENT IN UNIT AND INCREASES PEEP TO 12 FROM 8. HAVE INCREASED LEVOPHED TO 25 MCG'S/MIN. WILL CONTINUE TO MONITOR. WILL REVIEW CHART AND PLAN OF CARE FOR THIS PT.
[2021-06-17 20:09] LABS: PCO2 Arterial 43.5 mmHg (35-45); PO2 Arterial 52.5 mmHg (80-100); pH Blood Arterial 7.19 (7.35-7.45)
[2021-06-17 20:36] LABS: Glucose, Blood 655 mg/dL (70-99)
[2021-06-17 21:58] LABS: Beta-hydroxybutyrate 1.9 mg/dL (0.2-2.8)
[2021-06-17 22:09] LABS: Bun/Creatinine Ratio 30.7 (12.0-20.0); Calcium, Blood 6.4 mg/dL (8.5-10.1); Creatinine, Blood 2.54 mg/dL (0.40-1.00); Potassium, Blood 5.4 mmol/L (3.5-5.5)
--- NOTE | 2021-06-17 22:30 | NUR ---
PT HAD REQUIRED INCREASES IN PRESSORS TO MAX. BOOGIE TO 200 MCG'S. LEVOPHED TO 30, AND VASOPRESSIN TO 0.[address] ARGUETA HAS INCREASED LEVOPHED TO 35 MCG'S. NORMAL SALINE BOLUS GIVEN X 2. PT HAD INCREASING QRS GAP, AND EVENTUALLY HAD V-TACH TO PEA. PT HAD CARDIOPULMONARY ARREST. CODE FROM 2099 TO 2132. WAS NOT ABLE TO ACHIEVE ROSC.
== END 2021-06-17 21:33 | DRG 207 ==
LOC: ER 10:23 → ICUE 13:21 → MEDS 13:21 → SURS 13:21 → PCU 13:21 → SURS 14:35 → PCU 06-10 15:04 → ICUE 06-10 21:45
PROVIDERS: Emergency Medicine; Family Medicine; Internal Medicine; Internal Medicine Critical Care Medicine; Student in an Organized Health Care Education/Training Program; ADMIT Family Medicine
PROC: 5A09457 Assistance with Respiratory Ventilation, 24-96 Consecutive Hours, Continuous Positive Airway Pressure (ICD-10-PCS; principal; 2021-06-07)
PROC: 8E0ZXY6 Isolation (ICD-10-PCS; 2021-06-07)
PROC: 5A0955A Assistance with Respiratory Ventilation, Greater than 96 Consecutive Hours, High Flow/Velocity Cannula (ICD-10-PCS; 2021-06-07)
PROC: 3E043XZ Introduction of Vasopressor into Central Vein, Percutaneous Approach (ICD-10-PCS; 2021-06-07)
PROC: 5A1955Z Respiratory Ventilation, Greater than 96 Consecutive Hours (ICD-10-PCS; 2021-06-10)
PROC: 3E0333Z Introduction of Anti-inflammatory into Peripheral Vein, Percutaneous Approach (ICD-10-PCS; 2021-06-10)
PROC: 3E033XZ Introduction of Vasopressor into Peripheral Vein, Percutaneous Approach (ICD-10-PCS; 2021-06-10)
PROC: 0BH18EZ Insertion of Endotracheal Airway into Trachea, Via Natural or Artificial Opening Endoscopic (ICD-10-PCS; 2021-06-10)
PROC: 02HV33Z Insertion of Infusion Device into Superior Vena Cava, Percutaneous Approach (ICD-10-PCS; 2021-06-12)
PROC: 5A12012 Performance of Cardiac Output, Single, Manual (ICD-10-PCS; 2021-06-17)
DX: U07.1 COVID-19 (principal); E11.10 Type 2 diabetes mellitus with ketoacidosis without coma; J12.82 Pneumonia due to coronavirus disease 2019; J96.01 Acute respiratory failure with hypoxia; A41.89 Other specified sepsis; R65.21 Severe sepsis with septic shock; F84.0 Autistic disorder; I46.8 Cardiac arrest due to other underlying condition; Z78.1 Physical restraint status; G40.909 Epilepsy, unspecified, not intractable, without status epilepticus; E78.5 Hyperlipidemia, unspecified; G47.33 Obstructive sleep apnea (adult) (pediatric); R79.89 Other specified abnormal findings of blood chemistry; E78.1 Pure hyperglyceridemia; J98.2 Interstitial emphysema; R79.1 Abnormal coagulation profile; K58.9 Irritable bowel syndrome, unspecified; F43.10 Post-traumatic stress disorder, unspecified; E66.9 Obesity, unspecified; Z87.891 Personal history of nicotine dependence; Z68.35 Body mass index [BMI] 35.0-35.9, adult; Z88.0 Allergy status to penicillin; Z88.2 Allergy status to sulfonamides; Z88.8 Allergy status to other drugs, medicaments and biological substances; Z98.51 Tubal ligation status; Z79.84 Long term (current) use of oral hypoglycemic drugs; Z79.899 Other long term (current) drug therapy
CPT/HCPCS: 31500; 36415; 36569; 36620; 71045; 71260; 80048; 80053; 80069; 81001; 82010; 82803; 82947; 83605; 83735; 84100; 84478; 84484; 85007; 85025; 85027; 85379; 86140; 87086; 93005; 93010; 94002; 94003; 94640; 94660; 94664; 94762; 96374-59; 99285-25; A9270; C1751; C9113; J0456; J0692; J0696; J1100; J1265; J1630; J1650; J1815; J1940; J2060; J2370; J2704; J2920; J2930; J3010; J3370; J7030; J7040; J7050; J7060; P9046; Q9967